=== PATIENT | male | born 1960 | race Caucasian/White ===

== ENCOUNTER → 2016-11-01 | Outpatient (CLI) | payer OTHER ==
[2016-11-01 17:51] LABS: ALBUMIN/GLOBULIN RATIO 1.21 (1.00-1.93); ALKALINE PHOSPHATASE 89 U/L (45-117); ALT/SGPT 73 U/L (12-78); ANION GAP 10 MEQ/L (8-16); AST/SGOT 33 U/L (15-37); BILIRUBIN,TOTAL 0.5 MG/DL (0.2-1.0); BLOOD UREA NITROGEN 27 MG/DL (7-18); CALCIUM LEVEL 8.7 MG/DL (8.5-10.1); CARBON DIOXIDE LEVEL 28 MEQ/L (21-32); CHLORIDE LEVEL 106 MEQ/L (98-107); CHOLESTEROL LEVEL 193 MG/DL (<200); CREATININE FOR GFR 1.17 MG/DL (0.70-1.30); GLOMERULAR FILTRATION RATE > 60.0 (>56); GLUCOSE, FASTING 100 MG/DL (70-105); POTASSIUM SERUM 4.7 MEQ/L (3.5-5.1); SODIUM LEVEL 144 MEQ/L (136-145); TOTAL PROTEIN 7.3 GM/DL (6.4-8.2); TRIGLYCERIDES LEVEL 115 MG/DL (<150)
== END ==
LOC: M WUC 09:21
PROVIDERS: ATTEND Physician Assistant
DX: I10 Essential (primary) hypertension (principal); E78.2 Mixed hyperlipidemia

== ENCOUNTER → 2017-02-13 | Outpatient (CLI) | payer OTHER ==
[2017-02-13 13:06] LABS: ALBUMIN 3.9 GM/DL (3.2-5.2); ALBUMIN/GLOBULIN RATIO 1.15 (1.00-1.93); ALKALINE PHOSPHATASE 82 U/L (45-117); ALT/SGPT 79 U/L (12-78); ANION GAP 5 MEQ/L (8-16); AST/SGOT 38 U/L (15-37); BILIRUBIN,TOTAL 0.6 MG/DL (0.2-1.0); BLOOD UREA NITROGEN 25 MG/DL (7-18); CALCIUM LEVEL 9.4 MG/DL (8.5-10.1); CARBON DIOXIDE LEVEL 29 MEQ/L (21-32); CHLORIDE LEVEL 103 MEQ/L (98-107); CHOLESTEROL LEVEL 213 MG/DL (<200); CREATININE FOR GFR 1.26 MG/DL (0.70-1.30); GLOMERULAR FILTRATION RATE > 60.0 (>56); GLUCOSE, FASTING 101 MG/DL (70-105); POTASSIUM SERUM 4.8 MEQ/L (3.5-5.1); SODIUM LEVEL 137 MEQ/L (136-145); TOTAL PROTEIN 7.3 GM/DL (6.4-8.2); TRIGLYCERIDES LEVEL 85 MG/DL (<150)
== END ==
LOC: M WUC 09:18
PROVIDERS: ATTEND Physician Assistant
DX: I10 Essential (primary) hypertension (principal); E78.2 Mixed hyperlipidemia; E66.9 Obesity, unspecified

== ENCOUNTER → 2017-05-24 | Outpatient (CLI) | payer OTHER ==
[2017-05-24 18:25] LABS: BASO % 0.7 % (0.0-1.0); EOS # 0.4 K/mm3 (0.0-0.50); EOS % 7.7 % (0.0-3.0); LARGE UNSTAINED CELL # 0.2 K/mm3 (0.0-0.4); LYMPH # 1.4 K/mm3 (1.5-4.5); LYMPH % 27.2 % (24.0-44.0); MEAN CORPUSCULAR HEMOGLOBIN 33.6 pg (27.0-33.0); MEAN CORPUSCULAR HGB CONC 34.4 g/dl (32.0-36.5); MEAN CORPUSCULAR VOLUME 97.6 fl (80.0-96.0); MONO # 0.4 K/mm3 (0.0-0.8); MONO % 7.2 % (0.0-5.0); NEUTROPHILS # 2.7 K/mm3 (1.8-7.7); NEUTROPHILS % 53.3 % (36.0-66.0); PLATELET COUNT, AUTOMATED 224 k/mm3 (150-450); RED CELL DISTRIBUTION WIDTH 13.6 % (11.5-14.5)
[2017-05-24 18:55] LABS: ALBUMIN/GLOBULIN RATIO 1.18 (1.00-1.93); ALKALINE PHOSPHATASE 75 U/L (45-117); ALT/SGPT 78 U/L (12-78); ANION GAP 6 MEQ/L (8-16); AST/SGOT 34 U/L (15-37); BILIRUBIN,TOTAL 0.4 MG/DL (0.2-1.0); BLOOD UREA NITROGEN 32 MG/DL (7-18); CALCIUM LEVEL 9.3 MG/DL (8.5-10.1); CARBON DIOXIDE LEVEL 29 MEQ/L (21-32); CHLORIDE LEVEL 103 MEQ/L (98-107); CHOLESTEROL LEVEL 220 MG/DL (<200); CREATININE FOR GFR 1.11 MG/DL (0.70-1.30); GLOMERULAR FILTRATION RATE > 60.0 (>56); GLUCOSE, FASTING 96 MG/DL (70-105); SODIUM LEVEL 138 MEQ/L (136-145); TOTAL PROTEIN 7.4 GM/DL (6.4-8.2); TRIGLYCERIDES LEVEL 88 MG/DL (<150)
== END ==
LOC: M WUC 09:56
PROVIDERS: ATTEND Physician Assistant
DX: I10 Essential (primary) hypertension (principal); E78.2 Mixed hyperlipidemia; Z13.21 Encounter for screening for nutritional disorder

== ENCOUNTER → 2017-08-09 | Outpatient (CLI) | payer OTHER ==
[2017-08-09 18:01] LABS: ALBUMIN 3.9 GM/DL (3.2-5.2); ALBUMIN/GLOBULIN RATIO 1.11 (1.00-1.93); ALKALINE PHOSPHATASE 69 U/L (45-117); ALT/SGPT 80 U/L (12-78); ANION GAP 8 MEQ/L (8-16); AST/SGOT 34 U/L (7-37); BILIRUBIN,TOTAL 0.4 MG/DL (0.2-1.0); BLOOD UREA NITROGEN 28 MG/DL (7-18); CALCIUM LEVEL 9.1 MG/DL (8.5-10.1); CARBON DIOXIDE LEVEL 29 MEQ/L (21-32); CHLORIDE LEVEL 102 MEQ/L (98-107); CHOLESTEROL LEVEL 198 MG/DL (<200); FERRITIN 327 NG/ML (26-388); GLOMERULAR FILTRATION RATE > 60.0 (>56); GLUCOSE, FASTING 99 MG/DL (70-105); PERCENT SATURATION 28.1 % (19.7-50.0); POTASSIUM SERUM 4.7 MEQ/L (3.5-5.1); SODIUM LEVEL 139 MEQ/L (136-145); TOTAL IRON BINDING CAPACITY 338 UG/DL (250-450); TOTAL PROTEIN 7.4 GM/DL (6.4-8.2); TRIGLYCERIDES LEVEL 108 MG/DL (<150)
[2017-08-09 18:16] LABS: BASO # 0.1 10^3/uL (0.0-0.2); BASO % 1.1 % (0.0-1.0); EOS # 0.4 10^3/uL (0.0-0.50); EOS % 7.4 % (0.0-3.0); IMMATURE GRANULOCYTE % 0.6 % (0-0); LYMPH # 1.7 10^3/uL (1.5-4.5); LYMPH % 31.5 % (24.0-44.0); MEAN CORPUSCULAR HEMOGLOBIN 32.8 pg (27.0-33.0); MEAN CORPUSCULAR HGB CONC 33.1 g/dl (32.0-36.5); MONO # 0.6 10^3/uL (0.0-0.8); MONO % 10.4 % (0.0-5.0); NEUTROPHILS # 2.6 10^3/uL (1.8-7.7); PLATELET COUNT, AUTOMATED 218 10^3/uL (150-450); RED CELL DISTRIBUTION WIDTH 13.6 % (11.5-14.5); WHITE BLOOD COUNT 5.3 10^3/uL (4.0-10.0)
== END ==
LOC: M WUC 08:48
PROVIDERS: ATTEND Physician Assistant
DX: D64.9 Anemia, unspecified (principal); E78.2 Mixed hyperlipidemia; E55.9 Vitamin D deficiency, unspecified

== ENCOUNTER → 2017-09-23 | Outpatient (REF) | payer OTHER ==
[2017-09-23 13:15] LABS: RETIC HEMOGLOBIN EQUIVALENT 38.7 pg (24-36); RETICULOCYTE % 1.9 % (0.5-1.5)
[2017-09-23 13:17] LABS: REASON FOR REVIEW COMPREHENSIVE REVIEW; SLIDE REVIEW Report; SOURCE PERIPHERAL SMEAR
[2017-09-23 13:18] LABS: HEMATOCRIT 37.2 % (42.0-52.0)
[2017-09-23 13:20] LABS: INR 0.96; PROTHROMBIN TIME 12.8 SECONDS (12.4-14.5)
[2017-09-23 13:35] LABS: VITAMIN B12 LEVEL 479 PG/ML (247-911)
[2017-09-23 13:36] LABS: FREE T4 1.13 NG/DL (0.76-1.46); IMMUNOGLOBULIN G 850 MG/DL (681-1648); IMMUNOGLOBULIN M 181 MG/DL (40-230); THYROID STIMULATING HORMONE 0.738 uIU/ML (0.358-3.740); TOTAL PROTEIN 7.5 GM/DL (6.4-8.2)
[2017-09-23 13:36] LABS: GAMMA GLUTAMYLTRANSPEPTIDASE 134 U/L (15-85)
[2017-09-25 11:17] LABS: ALBUMIN 4.43 GM/DL (3.29-5.55); ALPHA-1-GLOBULIN % 4.2 % (2.9-4.9); ALPHA-1-GLOBULINS 0.32 GM/DL (0.17-0.41); ALPHA-2-GLOBULINS 0.82 GM/DL (0.42-0.99); ALPHA-2-GLOBULINS % 10.9 % (7.1-11.8); BETA-1-GLOBULINS 0.52 GM/DL (0.28-0.60); BETA-1-GLOBULINS % 6.9 % (4.7-7.2); BETA-2-GLOBULINS 0.43 GM/DL (0.19-0.55); BETA-2-GLOBULINS % 5.7 % (3.2-6.5); GAMMA GLOBULIN % 13.3 % (11.1-18.8)
[2017-09-25 12:05] LABS: PRETREATED FOLATE FOR RBCFOL 7.6 NG/ML
[2017-09-26 14:11] LABS: METHYLMALONIC ACID 272 nmol/L (0-378)
[2017-09-26 14:11] LABS: FREE KAPPA LIGHT CHAINS SERUM 17.1 mg/L (3.3-19.4); FREE LAMBDA LIGHT CHAINS SERUM 19.8 mg/L (5.7-26.3); KAPPA/LAMBDA RATIO SERUM 0.86 (0.26-1.65)
== END ==
LOC: M LAB REF 12:53
DX: D64.9 Anemia, unspecified (principal)
CPT/HCPCS: 82977

== ENCOUNTER → 2017-10-14 | Outpatient (REF) | payer OTHER | LOC: M SFHCLERA 12:43 | DX: C44.602 Unspecified malignant neoplasm of skin of right upper limb, including shoulder (principal) ==

== ENCOUNTER 2018-01-14 10:48 | Day surgery (SDC) | payer OTHER ==
[2018-01-14] MEDS: NS 1,000 ML IV (11:14)
[2018-01-14] MEDS ORDERED: PROPOFOL 200 MG/20 ML VIAL As Ordered ×2 (11:48)
== END 2018-01-14 12:38 | disposition home or self-care (01) ==
LOC: M OPP 10:48
DX: Z12.11 Encounter for screening for malignant neoplasm of colon (principal); D12.3 Benign neoplasm of transverse colon; D12.2 Benign neoplasm of ascending colon; D12.1 Benign neoplasm of appendix; I10 Essential (primary) hypertension; E78.5 Hyperlipidemia, unspecified; J44.9 Chronic obstructive pulmonary disease, unspecified; Z79.899 Other long term (current) drug therapy; Z80.0 Family history of malignant neoplasm of digestive organs; Z87.891 Personal history of nicotine dependence
CPT/HCPCS: 45385

== ENCOUNTER → 2018-04-25 | Outpatient (CLI) | payer OTHER | LOC: M LRY 09:24 | DX: D64.9 Anemia, unspecified (principal); E78.2 Mixed hyperlipidemia; E55.9 Vitamin D deficiency, unspecified ==

== ENCOUNTER → 2018-08-18 | Outpatient (CLI) | payer OTHER ==
[2018-08-18 17:20] LABS: BASO % 0.7 % (0.0-1.0); EOS # 0.4 10^3/uL (0.0-0.50); HEMATOCRIT 36.2 % (42.0-52.0); HEMOGLOBIN 11.6 g/dl (13.5-17.5); IMMATURE GRANULOCYTE % 1.2 % (0-3.0); LYMPH # 1.3 10^3/uL (1.5-4.5); LYMPH % 22.7 % (24.0-44.0); MEAN CORPUSCULAR HEMOGLOBIN 31.4 pg (27.0-33.0); MEAN CORPUSCULAR VOLUME 98.1 fl (80.0-96.0); MONO # 0.6 10^3/uL (0.0-0.8); MONO % 10.6 % (0.0-5.0); NEUTROPHILS # 3.5 10^3/uL (1.8-7.7); NEUTROPHILS % 58.8 % (36.0-66.0); PLATELET COUNT, AUTOMATED 222 10^3/uL (150-450); RED BLOOD COUNT 3.69 10^6/uL (4.30-6.10); WHITE BLOOD COUNT 5.9 10^3/uL (4.0-10.0)
[2018-08-18 18:05] LABS: ALBUMIN 3.6 GM/DL (3.2-5.2); ALBUMIN/GLOBULIN RATIO 1.06 (1.00-1.93); ALKALINE PHOSPHATASE 88 U/L (45-117); ALT/SGPT 60 U/L (12-78); ANION GAP 12 MEQ/L (8-16); AST/SGOT 32 U/L (7-37); BILIRUBIN,TOTAL 0.6 MG/DL (0.2-1.0); BLOOD UREA NITROGEN 41 MG/DL (7-18); CALCIUM LEVEL 8.9 MG/DL (8.5-10.1); CARBON DIOXIDE LEVEL 22 MEQ/L (21-32); CHLORIDE LEVEL 101 MEQ/L (98-107); CREATININE FOR GFR 1.71 MG/DL (0.70-1.30); FREE T4 1.26 NG/DL (0.76-1.46); GLOMERULAR FILTRATION RATE 44.3 (>56); GLUCOSE, FASTING 93 MG/DL (70-100); POTASSIUM SERUM 4.1 MEQ/L (3.5-5.1); SODIUM LEVEL 135 MEQ/L (136-145); THYROID STIMULATING HORMONE 0.814 uIU/ML (0.358-3.740); TOTAL 25(OH) VITAMIN D 58.8 NG/ML (30.0-100.0)
== END ==
LOC: M WUC 11:15
DX: D64.9 Anemia, unspecified (principal); E55.9 Vitamin D deficiency, unspecified; E78.2 Mixed hyperlipidemia; Z13.29 Encounter for screening for other suspected endocrine disorder
CPT/HCPCS: 84443

== ENCOUNTER → 2018-08-27 | Outpatient (CLI) | payer OTHER ==
[~2018-08-27] MED LIST: ELIQ5TAB PO; SIMV40TA2; VALS160T3; VITA50005
--- NOTE | 2018-08-27 12:36 | REP ---
Emergency left lower extremity duplex venous ultrasound: History: Edema in the left lower extremity. Question DVT. Findings: There is lack of compressibility and occlusive thrombosis seen in the popliteal vein and proximal calf veins at the venous confluence in the upper calf consistent with DVT. The femoral vein and common femoral vein segment are clear. Study is otherwise unremarkable. Impression: The study is positive for occlusive DVT in the popliteal vein and proximal calf deep veins. Electronically Signed by Colin Zelaya MD 08/27/2018 04:36 P
== END ==
LOC: M RAD 11:19
PROVIDERS: ATTEND Physician Assistant
DX: R60.0 Localized edema (principal)

== ENCOUNTER 2018-09-02 13:33 | Emergency (ER) | payer OTHER ==
[~2018-09-02] VITALS: Ht 182.9 cm; Wt 127.3 kg
[~2018-09-02 13:33] MED LIST changes: -ELIQ5TAB PO
[2018-09-02] MEDS ORDERED: ELIQ5TAB PO (13:41)
--- NOTE | 2018-09-02 15:09 | REP ---
Right foot series: Four views. History: Pain and swelling. Findings: Four views right foot demonstrate Achilles and plantar calcaneal spurring. Overall mineralization pattern is normal. No fracture or subluxation is seen. Impression: Heel spurs. No acute bony abnormality. Electronically Signed by Colin Zelaya MD 09/02/2018 03:00 P
[2018-09-02 15:41] VITALS: BP 110/61
== END 2018-09-02 15:43 | disposition home or self-care (01) ==
LOC: M ED 13:33
DX: S96.911A Strain of unspecified muscle and tendon at ankle and foot level, right foot, initial encounter (principal); M79.89 Other specified soft tissue disorders; X58.XXXA Exposure to other specified factors, initial encounter; Y92.89 Other specified places as the place of occurrence of the external cause; Z86.718 Personal history of other venous thrombosis and embolism; Z79.899 Other long term (current) drug therapy; Z79.01 Long term (current) use of anticoagulants

== ENCOUNTER → 2018-10-15 | Outpatient (CLI) | payer OTHER ==
[~2018-10-15] MED LIST changes: +ELIQ5TAB PO
--- NOTE | 2018-10-15 10:05 | REP ---
RENAL ULTRASOUND: Real-time sonographic evaluation of the kidney is performed. The kidneys are normal in size and echotexture, right kidney measuring 11.5 x 6.5 x 5.5 cm and left kidney 11.4 x 6.0 x 6.5 cm. There is no hydronephrosis bilaterally. Vascular calcifications are seen in the kidneys bilaterally. There is no definite stone or mass identified. Urinary bladder is not optimally distended and not optimally evaluated, no gross abnormality is seen. Prostate is enlarged measuring 5.4 x 4.5 x 5.6 cm for a total volume of 71.2 mL. IMPRESSION: No hydronephrosis bilaterally. Enlarged prostate. Urinary bladder not well distended and not well evaluated. Electronically Signed by Rey Cortes MD 10/15/2018 01:40 P
== END ==
LOC: M RAD 07:23
PROVIDERS: ATTEND Internal Medicine Nephrology
DX: I12.9 Hypertensive chronic kidney disease with stage 1 through stage 4 chronic kidney disease, or unspecified chronic kidney disease (principal)

== ENCOUNTER → 2018-12-28 | Outpatient (CLI) | payer OTHER ==
[2018-12-28 12:58] LABS: BASO # 0.1 10^3/uL (0.0-0.2); BASO % 1.1 % (0.0-1.0); EOS # 0.4 10^3/uL (0.0-0.50); EOS % 9.2 % (0.0-3.0); HEMATOCRIT 39.6 % (42.0-52.0); HEMOGLOBIN 13.1 g/dl (13.5-17.5); LYMPH # 1.3 10^3/uL (1.5-4.5); LYMPH % 29.1 % (24.0-44.0); MEAN CORPUSCULAR HEMOGLOBIN 31.2 pg (27.0-33.0); MEAN CORPUSCULAR HGB CONC 33.1 g/dl (32.0-36.5); MEAN CORPUSCULAR VOLUME 94.3 fl (80.0-96.0); MONO # 0.5 10^3/uL (0.0-0.8); MONO % 10.8 % (0.0-5.0); NEUTROPHILS # 2.2 10^3/uL (1.8-7.7); NEUTROPHILS % 49.4 % (36.0-66.0); PLATELET COUNT, AUTOMATED 203 10^3/uL (150-450); WHITE BLOOD COUNT 4.5 10^3/uL (4.0-10.0)
[2018-12-28 13:51] LABS: ALBUMIN 4.1 GM/DL (3.2-5.2); BILIRUBIN,TOTAL 0.9 MG/DL (0.2-1.0); CALCIUM LEVEL 9.7 MG/DL (8.5-10.1); CHOLESTEROL RISK RATIO 3.153 (<5); CREATININE FOR GFR 1.46 MG/DL (0.70-1.30); GLOMERULAR FILTRATION RATE 53.2 (>56); PERCENT SATURATION 44.2 % (19.7-50.0); TOTAL PROTEIN 7.2 GM/DL (6.4-8.2)
[2018-12-28 13:53] LABS: TOTAL 25(OH) VITAMIN D 48.3 NG/ML (30.0-100.0)
== END ==
LOC: M WUC 08:47
PROVIDERS: ATTEND Physician Assistant
DX: D64.9 Anemia, unspecified (principal); N25.9 Disorder resulting from impaired renal tubular function, unspecified; E78.2 Mixed hyperlipidemia; E55.9 Vitamin D deficiency, unspecified

== ENCOUNTER 2019-04-24 10:32 | Emergency (ER) | payer OTHER ==
[~2019-04-24] VITALS: Ht 182.9 cm; Wt 127.3 kg
[2019-04-24 11:09] LABS: BASO % 0.4 % (0.0-1.0); EOS # 0.2 10^3/uL (0.0-0.50); HEMATOCRIT 36.3 % (42.0-52.0); HEMOGLOBIN 12.1 g/dl (13.5-17.5); LYMPH # 1.1 10^3/uL (1.5-4.5); LYMPH % 16.2 % (24.0-44.0); MEAN CORPUSCULAR HEMOGLOBIN 32.5 pg (27.0-33.0); MEAN CORPUSCULAR HGB CONC 33.3 g/dl (32.0-36.5); MEAN CORPUSCULAR VOLUME 97.6 fl (80.0-96.0); MONO # 0.7 10^3/uL (0.0-0.8); MONO % 10.8 % (0.0-5.0); NEUTROPHILS # 4.6 10^3/uL (1.8-7.7); NEUTROPHILS % 69.3 % (36.0-66.0); PLATELET COUNT, AUTOMATED 202 10^3/uL (150-450); RED BLOOD COUNT 3.72 10^6/uL (4.30-6.10); WHITE BLOOD COUNT 6.7 10^3/uL (4.0-10.0)
[2019-04-24] MEDS ORDERED: NS 1,000 ML IV ONE (11:15)
[2019-04-24 11:27] LABS: ERYTHROCYTE SEDIMENTATION RATE 69 mm/hr (0-20)
[2019-04-24 11:34] LABS: ALBUMIN 3.6 GM/DL (3.2-5.2); BILIRUBIN,TOTAL 0.6 MG/DL (0.2-1.0); C REACTIVE PROTEIN QUANTITATIV 1.63 MG/DL (0.00-0.30); CALCIUM LEVEL 9.5 MG/DL (8.5-10.1); CREATININE FOR GFR 1.38 MG/DL (0.70-1.30); GLOMERULAR FILTRATION RATE 56.7 (>56); POTASSIUM SERUM 4.3 MEQ/L (3.5-5.1); TOTAL PROTEIN 7.3 GM/DL (6.4-8.2)
[2019-04-24 12:17] LABS: INR 1.35; PROTHROMBIN TIME 16.4 SECONDS (11.8-14.0)
[2019-04-24 12:18] LABS: PARTIAL THROMBOPLASTIN TIME 37.7 SECONDS (25.0-38.4)
[2019-04-24] MEDS ORDERED: CLIN150C14 PO (12:39)
[2019-04-24] MEDS ORDERED: CLINDAMYCIN 300 MG in APPROPRIATE DILUENT 1 EA IV ONE (12:45)
[2019-04-24 13:57] VITALS: BP 121/61
--- NOTE | 2019-04-24 14:43 | REP ---
RIGHT LOWER EXTREMITY DOPPLER VENOUS ULTRASOUND: 04/24/2019. Clinical history: Lower extremity edema. History of left DVT 08/24. Comparison: None. Technique: The deep venous system of the right lower extremity is evaluated with pantoja scale imaging, compression ultrasound, color imaging and duplex Doppler interrogation. Examination from the groin through the popliteal fossa into the proximal calf. Findings: There is full compressibility from the common femoral vein in the inguinal region through the popliteal vein. Color imaging confirms patency throughout the course of the deep venous system. There is respiratory variation and augmented flow at all levels. Impression: 1. No Doppler venous ultrasound evidence of DVT in the right lower extremity. Electronically Signed by Brian Waddell MD 04/24/2019 08:38 P
== END 2019-04-24 14:14 | disposition home or self-care (01) ==
LOC: M ED 10:32
DX: L03.115 Cellulitis of right lower limb (principal); I10 Essential (primary) hypertension; Z79.899 Other long term (current) drug therapy; Z79.01 Long term (current) use of anticoagulants; Z87.891 Personal history of nicotine dependence

== ENCOUNTER 2019-09-19 21:05 | Inpatient (IN) | payer OTHER ==
[~2019-09-19] VITALS: Ht 182.9 cm; Wt 132.7 kg
[~2019-09-19 21:05] MED LIST changes: +CLIN150C14 PO; -SIMV40TA2; +SIMV40TA20
[2019-09-19 21:54] LABS: BASO % 0.5 % (0.0-1.0); EOS # 0.3 10^3/uL (0.0-0.5); EOS % 4.4 % (0.0-3.0); HEMATOCRIT 34.8 % (42.0-52.0); HEMOGLOBIN 11.1 g/dl (13.5-17.5); LYMPH # 1.9 10^3/uL (1.5-5.0); LYMPH % 30.1 % (24.0-44.0); MEAN CORPUSCULAR HEMOGLOBIN 30.2 pg (27.0-33.0); MEAN CORPUSCULAR HGB CONC 31.9 g/dl (32.0-36.5); MEAN CORPUSCULAR VOLUME 94.6 fl (80.0-96.0); MONO # 0.9 10^3/uL (0.0-0.8); MONO % 13.4 % (0.0-5.0); NEUTROPHILS # 3.3 10^3/uL (1.5-8.5); PLATELET COUNT, AUTOMATED 207 10^3/uL (150-450); RED BLOOD COUNT 3.68 10^6/uL (4.30-6.10); WHITE BLOOD COUNT 6.4 10^3/uL (4.0-10.0)
[2019-09-19 22:24] LABS: BLOOD UREA NITROGEN 55 MG/DL (7-18); CALCIUM LEVEL 9.2 MG/DL (8.5-10.1); CARBON DIOXIDE LEVEL 26 MEQ/L (21-32); CHLORIDE LEVEL 101 MEQ/L (98-107); CK-MB VALUE MASS 3.6 NG/ML (<3.6); CPK CREATINE PHOSPHOKINASE 282 U/L (39-308); CREATININE FOR GFR 2.79 MG/DL (0.70-1.30); GLOMERULAR FILTRATION RATE 25.1 (>56); GLUCOSE, FASTING 111 MG/DL (70-100); MB/CK RELATIVE INDEX 1.28 (< OR =4); NT-PRO BNP 176 PG/ML (<125); POTASSIUM SERUM 3.8 MEQ/L (3.5-5.1); SODIUM LEVEL 137 MEQ/L (136-145); TROPONIN I < 0.02 NG/ML (< 0.10)
[2019-09-19] MEDS ORDERED: NS 1,000 ML IV ONE (22:45)
[2019-09-19 23:08] LABS: ALBUMIN 3.8 GM/DL (3.2-5.2); ALT/SGPT 39 U/L (12-78); BILIRUBIN,DIRECT 0.1 MG/DL (0.0-0.2); BILIRUBIN,TOTAL 0.2 MG/DL (0.2-1.0)
[2019-09-19] MEDS ORDERED: FISH1000 PO (23:09)
[2019-09-19] MEDS ORDERED: VITACHTA PO (23:09)
[2019-09-19] MEDS ORDERED: SIMV40TA20 PO (23:09)
[2019-09-19] MEDS ORDERED: ACET-897 PO (23:09)
[2019-09-19] MEDS ORDERED: VALS160T3 PO (23:09)
[2019-09-19] MEDS ORDERED: ELIQ5TAB PO (23:09)
[2019-09-20] VITALS (9 sets, daily range): BP systolic 138–163; BP diastolic 75–95
[2019-09-20] MEDS ORDERED: ACETAMINOPHEN 500 MG TAB PO PRN
--- NOTE | 2019-09-20 02:00 | HPEPDOC ---
[facility] Medical History & Physical Date of Admission Sep 20, 2019 Date of Service: Sep 20, 2019 Primary Care Physician: Jessi James PA-C ER History and Physical CHIEF COMPLAINT: Pre-syncope and hypotension HISTORY OF PRESENT ILLNESS: This is a 59-year-old male with a pertinent past medical history of alcohol abuse, fatty liver, hypertension, left lower leg DVT on Eliquis who presented to our ER for hypotension and presyncope the last 3 days. He is accompanied by his who supplemented the history with the patient. He states since Thursday he has noticed that his blood pressure has been running low with systolics ranging from 74-91 and diastolics ranging from 3950. He states that he was just measuring his blood pressure for he does it daily with his because of their history of hypertension. He does note with these low blood pressures he is having company lightheadedness and dizziness especially with forward bending. 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 He admits the only new medication is Backaid, which is an zqwy-sdl-sumujjj that he picked up this past Thursday for his low back pain. Otherwise patient denies fevers, chills, weight loss, hair loss, headache, visual changes, chest pain, shortness of breath, cough, nausea, vomiting, diarrhea, abdominal pain, muscle aches, worsening arthritis, change in mood. In the ER he was found to have a blood pressure lows at 80/50. Hospitalist team was then called for management for hypotension. PAST MEDICAL HISTORY: 1. Alcohol abuse 2. Fatty liver 3. Hypertension 4. Hyperlipidemia 5. Unprovoked DVT of the left lower leg currently on Eliquis diagnosed in 08/2018 HOME MEDICATIONS: Please see below. ALLERGIES: Please see below PAST SURGICAL HISTORY: 1. Tonsillectomy 2. Cataract surgery bilateral. 3. Biopsy of right hand spot. 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 ETOH: [address] drink prior to coming to the ER this evening, Illicit drug use: Denies CODE STATUS: Full code FAMILY HISTORY:Reviewed and noncontributory REVIEW OF SYSTEMS: 10 systems reviewed and negative other than HPI PHYSICAL EXAMINATION: VITAL SIGNS: See below GENERAL: Pleasant 59-year-old male morbidly obese sitting up in bed awake alert oriented speaking in complete sentences no acute distress HEENT: Atraumatic normocephalic pupils are equal round and reactive dry mucous membranes with no JVD CARDIOVASCULAR: Very distant heart sounds difficult to assess due to large body habitus RESPIRATORY: Clear to auscultation bilaterally. ABDOMINAL: Bowel sounds present abdomen soft and nontender morbidly obese abdomen EXTREMITIES: No clubbing cyanosis or edema NEUROLOGICAL: Spontaneously moves all 4 extremities cranial 2 through 12 grossly intact no gross focal deficits appreciated PSYCHOLOGICAL: Appropriate LABORATORY DATA: See below. MICROBIOLOGY: Please see below. IMAGING: No imaging ASSESSMENT & PLAN: This is a 59-year-old male with a pertinent past medical history of alcohol abuse, fatty liver, hypertension, left lower leg DVT on Eliquis who presented to our ER for hypotension and presyncope PROBLEMS: 1. Hypotension/presyncope- blood pressure responded to 1 L bolus in the ER. There is an MELANI with a creatinine of 2.79. I believe this is all secondary to hypovolemia the uorz-seg-vjnhykm drug BackAid has Parabrom which is a saof-oiz-ammzerq diuretic with his home valsartan and hydrochlorothiazide that he is supplementing with possibly caused him to be hypovolemic recommendations include discontinue Backaid, continue normal saline 100 mL for 2 L. Ortho statsx1, hold home hypertensive medication while admitted, 2. MELANI secondary to problem 1. Baseline creatinine 1.3 3. Hypertension. Hold home hypertensive secondary due to problem 1. Once stable can consider restarting 4. Alcohol abuse. [facility] protocol, multi vitamin, thiamine and folate on board 5. Unprovoked DVT of the left lower leg currently on Eliquis diagnosed in 08/2018. Stable. 2+ pedal pulses bilaterally . Has yet to establish with profiling machine operator states it was unprovoked. We'll continue as prescribed advised that he needs to establish with profiling machine operator upon discharge. He is agreeable to this plan. 6. Normocytic anemia. Will monitor with CBCs. Iron studies pending. Has a history of alcohol abuse started with thiamine and folic acid. Last colonoscopy January 2018- 3 polyps removed: tubular adenoma. DVT PROPHYLAXIS: Eliquis DISPOSITION: Obs 24-48 hours I personally saw and examined patient. I have reviewed and agree with residents findings including all diagnostic interpretations, and treatment plans as written. I was present for the cabral portions of any procedures performed and the inclusive time noted in any critical care times treatment. Time spent 35 minutes, greater than 50% of the time spent on education. Vital Signs Vital Signs Date Time Temp Pulse Resp B/P (MAP) Pulse Ox O2 Delivery O2 Flow Rate FiO2 09/20/19 00:30 71 18 107/56 (73) 98 Room Air 09/19/19 21:05 97.4 Laboratory Data Labs 24H Laboratory Tests 2 09/19/19 21:41: Immature Granulocyte % (Auto) 0.6, Neutrophils (%) (Auto) 51.0, Lymphocytes (%) (Auto) 30.1, Monocytes (%) (Auto) 13.4H, Eosinophils (%) (Auto) 4.4H, Basophils (%) (Auto) 0.5, Neutrophils # (Auto) 3.3, Lymphocytes # (Auto) 1.9, Monocytes # (Auto) 0.9H, Eosinophils # (Auto) 0.3, Basophils # (Auto) 0.0, Nucleated Red Blood Cells % (auto) 0.0, Anion Gap 10, Glomerular Filtration Rate 25.1L, Calcium Level 9.2, Total Bilirubin 0.2, Direct Bilirubin 0.1, Aspartate Amino Transf (AST/SGOT) 31, Alanine Aminotransferase (ALT/SGPT) 39, Alkaline Phosphatase 79, Total Creatine Kinase 282, Creatine Kinase MB 3.6, Creatine Kinase MB Relative Index 1.28, Troponin I < 0.02, PQ-Xoh-N-Type Natriuretic Peptide 176H, Total Protein 7.0, Albumin 3.8, Albumin/Globulin Ratio 1.19 09/19/19 23:53: Lactic Acid Level 2.7*H CBC/BMP Laboratory Tests 09/19/19 21:41 Microbiology Microbiology 09/19/19 Blood Culture, Received Pending 09/19/19 Blood Culture, Received Pending Home Medications Scheduled Apixaban (Eliquis) 5 Mg Tablet, 5 MG PO BID Multivitamins (Child Chew Vitamin) 1 Each Tab.chew, 1 TAB PO DAILY [place]-3 Fatty Acids/Fish Oil (Fish Oil 1,000 mg Capsule) 1 Each Capsule, 1,000 MG PO DAILY Simvastatin (Simvastatin) 40 Mg Tablet, 40 MG PO DAILY Valsartan/Hydrochlorothiazide (Valsartan-Hctz 160-25 mg Tab) 1 Each Tablet, 1 TAB PO DAILY Scheduled PRN Acetaminophen (Tylenol Extra Strength) 500 Mg Tablet, 1,000 MG PO Q6H PRN for PAIN Allergies Coded Allergies: No Known Allergies (Unverified , 11/04/17) KYLEIGH LLOYD DO Sep 20, 2019 02:00 CORA JACQUES MD Sep 20, 2019 04:26
[2019-09-20] MEDS: NS 1,000 ML IV SCH ×2 (03:54→14:24)
[2019-09-20 05:42] LABS: HEMATOCRIT 35.2 % (42.0-52.0); HEMOGLOBIN 10.9 g/dl (13.5-17.5); MEAN CORPUSCULAR HEMOGLOBIN 29.9 pg (27.0-33.0); MEAN CORPUSCULAR VOLUME 96.7 fl (80.0-96.0); PLATELET COUNT, AUTOMATED 179 10^3/uL (150-450); RED BLOOD COUNT 3.64 10^6/uL (4.30-6.10); WHITE BLOOD COUNT 4.2 10^3/uL (4.0-10.0)
[2019-09-20 05:52] LABS: CALCIUM LEVEL 8.5 MG/DL (8.5-10.1); CREATININE FOR GFR 2.01 MG/DL (0.70-1.30); GLOMERULAR FILTRATION RATE 36.6 (>56); PERCENT SATURATION 16.4 % (19.7-50.0); POTASSIUM SERUM 4.7 MEQ/L (3.5-5.1)
[2019-09-20] MEDS: FOLIC ACID 1 MG TAB PO SCH (08:27)
[2019-09-20] MEDS: APIXABAN 5 MG TAB (ELIQUIS) PO SCH ×2 (08:27→20:16)
[2019-09-20] MEDS: SIMVASTATIN 40 MG TAB PO SCH (08:27)
[2019-09-20] MEDS: THIAMINE 100 MG TAB PO SCH (08:27)
[2019-09-20] MEDS: MULTIVITAMINS CHILDREN'S CHEWABLE TABLET PO SCH (14:24)
[2019-09-20] MEDS ORDERED: VALSARTAN 80 MG TAB (DIOVAN) PO ONE (19:00)
--- NOTE | 2019-09-20 19:02 | IPNPDOC ---
Date Seen The patient was seen on 09/20/19. Progress Note SUBJECTIVE: Patient reported feeling well today without any complaints. Afebrile overnight. No leukocytosis. Cr improved 2.79->2.01 with resolution of lactic acidosis. OBJECTIVE PHYSICAL EXAMINATION: VITAL SIGNS: Please see below. General: No acute distress, Alert Eyes: Normal sclera, EOMI HENT: Atraumatic Cardiovascular: Normal rate, normal rhythm. Pulmonary: Clear to auscultation b/l, no wheezing GI: Soft, nontender, nondistended Skin: Warm and dry Neuro: CN grossly intact. No focal deficits. Strengths equal b/l. Psych: oriented x 3 LABORATORY DATA, IMAGING STUDIES, MICROBIOLOGY: Please see below. DVT prophylaxis ordered?: Eliquis ASSESSMENT AND PLAN: 1. Hypotension/Presyncope - Resolved with IVF resuscitation. No evidence of infection. - f/u blood cultures. Patient remains afebrile with no leukocytosis. UA negative. - Started on Backaid in setting of valsartan and HCTZ at home, suspect 2/2 hypovolemia. - Home anti-hypertensive had been held. - Will start on low dose valsartan tonight. If Bp stable, can restart home dose medication tomorrow. 2. MELANI - Rapidly improving. - suspect 2/2 hypvolemia. - c/w IVF resuscitation. 3. HTN - Give one dose of 80 mg valsartan today. - Consider resuming home med tomorrow. 4. Alcohol abuse - CiWA w/ multivitamins. 5. DVT - c/w Eliquis. 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 DISPOSITION: Home likely tomorrow. VS, I&O, [facility]H, [facility] Vital Signs/I&O Vital Signs Date Time Temp Pulse Resp B/P (MAP) Pulse Ox O2 Delivery O2 Flow Rate FiO2 09/20/19 14:00 98.4 88 20 138/81 (100) 98 Room Air I&O- Last 24 Hours up to 6 AM 09/20/19 06:00 Intake Total 1720 ml Output Total 650 ml Balance 1070 ml Laboratory Data 24H LABS Laboratory Tests 2 09/19/19 21:41: Immature Granulocyte % (Auto) 0.6, Neutrophils (%) (Auto) 51.0, Lymphocytes (%) (Auto) 30.1, Monocytes (%) (Auto) 13.4H, Eosinophils (%) (Auto) 4.4H, Basophils (%) (Auto) 0.5, Neutrophils # (Auto) 3.3, Lymphocytes # (Auto) 1.9, Monocytes # (Auto) 0.9H, Eosinophils # (Auto) 0.3, Basophils # (Auto) 0.0, Nucleated Red Blood Cells % (auto) 0.0, Anion Gap 10, Glomerular Filtration Rate 25.1L, Calcium Level 9.2, Total Bilirubin 0.2, Direct Bilirubin 0.1, Aspartate Amino Transf (AST/SGOT) 31, Alanine Aminotransferase (ALT/SGPT) 39, Alkaline Phosphatase 79, Total Creatine Kinase 282, Creatine Kinase MB 3.6, Creatine Kinase MB Relative Index 1.28, Troponin I < 0.02, CX-Eqx-K-Type Natriuretic Peptide 176H, Total Protein 7.0, Albumin 3.8, Albumin/Globulin Ratio 1.19 09/19/19 23:53: Lactic Acid Level 2.7*H 09/20/19 03:34: Urine Color YELLOW, Urine Appearance CLEAR, Urine pH 5.0, Urine Specific [place] 1.014, Urine Protein NEGATIVE, Urine Glucose (UA) NEGATIVE, Urine Ketones NEGATIVE, Urine Blood NEGATIVE, Urine Nitrite NEGATIVE, Urine Bilirubin NEGATIVE, Urine Urobilinogen 0.2, Urine Leukocyte Esterase NEGATIVE, Urine WBC (Auto) 0, Urine RBC (Auto) 0, Urine Hyaline Casts (Auto) 8, Urine Bacteria (Auto) NEGATIVE, Urine Squamous Epithelial Cells 0, Urine Mucus (Auto) SMALL, Urine Sperm (Auto) 09/20/19 04:56: Nucleated Red Blood Cells % (auto) 0.0, Anion Gap 10, Glomerular Filtration Rate 36.6L, Calcium Level 8.5, Lactic Acid Level 2.5*H, Magnesium Level 2.0, Iron Level 69, Total Iron Binding Capacity 421, Transferrin % Saturation 16.4L, Ferritin 29 09/20/19 09:26: Lactic Acid Followup at 4 Hours 2.1*H 09/20/19 12:44: Lactic Acid Level 1.7 CBC/BMP Laboratory Tests 09/19/19 21:41 09/20/19 04:56 Microbiology Microbiology 09/19/19 Blood Culture, Received Pending 09/19/19 Blood Culture, Received Pending FAISAL RIGGINS MD Sep 20, 2019 19:02
[2019-09-21 06:32] VITALS: BP 146/86
[2019-09-21 07:45] LABS: HEMATOCRIT 35.1 % (42.0-52.0); HEMOGLOBIN 11.2 g/dl (13.5-17.5); MEAN CORPUSCULAR HEMOGLOBIN 30.6 pg (27.0-33.0); MEAN CORPUSCULAR HGB CONC 31.9 g/dl (32.0-36.5); MEAN CORPUSCULAR VOLUME 95.9 fl (80.0-96.0); PLATELET COUNT, AUTOMATED 186 10^3/uL (150-450); RED BLOOD COUNT 3.66 10^6/uL (4.30-6.10)
[2019-09-21 08:13] LABS: CALCIUM LEVEL 9.1 MG/DL (8.5-10.1); CREATININE FOR GFR 1.45 MG/DL (0.70-1.30); GLOMERULAR FILTRATION RATE 53.4 (>56); POTASSIUM SERUM 4.3 MEQ/L (3.5-5.1)
[2019-09-21] MEDS: THIAMINE 100 MG TAB PO SCH (09:21)
[2019-09-21] MEDS: MULTIVITAMINS CHILDREN'S CHEWABLE TABLET PO SCH (09:21)
[2019-09-21] MEDS: SIMVASTATIN 40 MG TAB PO SCH (09:21)
[2019-09-21] MEDS: FOLIC ACID 1 MG TAB PO SCH (09:21)
[2019-09-21] MEDS: APIXABAN 5 MG TAB (ELIQUIS) PO SCH (09:21)
--- NOTE | 2019-09-21 09:55 | ECGEPIP ---
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
--- NOTE | 2019-09-21 17:20 | DS.PDOC ---
Discharge Summary General Date of Admission Sep 20, 2019 at 02:01 Date of Discharge 09/21/18 Discharge Summary PROCEDURES PERFORMED DURING STAY: [None]. ADMITTING DIAGNOSES: 1. Presyncope 2. Hypotension 3. MELANI 4. Alcohol abuse 5. DVT 6. Normocytic anemia DISCHARGE DIAGNOSES: 1. Presyncope 2. Hypotension 3. MELANI 4. Alcohol abuse 5. DVT 6. Normocytic anemia COMPLICATIONS/CHIEF COMPLAINT: Arf;Hypotension;Lactic Acid Acidosis. HISTORY OF PRESENT ILLNESS: "This is a 59-year-old male with a pertinent past medical history of alcohol abuse, fatty liver, hypertension, left lower leg DVT on Eliquis who presented to our ER for hypotension and presyncope the last 3 days. He is accompanied by his who supplemented the history with the patient. He states since Thursday he has noticed that his blood pressure has been running low with systolics ranging from 74-91 and diastolics ranging from 3950. He states that he was just measuring his blood pressure for he does it daily with his because of their history of hypertension. He does note with these low blood pressures he is having company lightheadedness and dizziness especially with forward bending. 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 He admits the only new medication is Backaid, which is an exzt-pln-lepkwai that he picked up this past Thursday for his low back pain. Otherwise patient denies fevers, chills, weight loss, hair loss, headache, visual changes, chest pain, shortness of breath, cough, nausea, vomiting, diarrhea, abdominal pain, muscle aches, worsening arthritis, change in mood. In the ER he was found to have a blood pressure lows at 80/50. Hospitalist team was then called for management for hypotension." HOSPITAL COURSE: Patient was treated with IVF with resolution of symptoms and rapid recovery of kidney functions. Backaid was discontinued and BP medications were held briefly with BP elevated again and medications were subsequently resumed. UA shows no evidence of infection, patient does not have any urinary symptoms whatsoever with no leukocytosis. Suspect due to combination of medications taken at home in addition to dehydration. Cr 2.79 at presentation had trended down to 1.45 and now patient is asymptomatic with no episodes of hypotension. Patient to be discharged home to f/u with PMD and repeat BMP to determine continue improvement and resolution of MELANI. DISCHARGE MEDICATIONS: Please see below. ALLERGIES: Please see below. PHYSICAL EXAMINATION ON DISCHARGE: VITAL SIGNS: Please see below. General: No acute distress, Alert Eyes: Normal sclera, EOMI HENT: Atraumatic Cardiovascular: Normal rate, normal rhythm. Pulmonary: Clear to auscultation b/l, no wheezing GI: Soft, nontender, nondistended Skin: Warm and dry Neuro: CN grossly intact. No focal deficits. Strengths equal b/l. Psych: oriented x 3 LABORATORY DATA: Please see below. IMAGING: None ACTIVITY: [As tolerated]. DIET: Regular DISCHARGE PLAN: f/u PMD and recheck BMP DISPOSITION: Home, Self-Care. DISCHARGE INSTRUCTIONS: f/u PMD and recheck BMP ITEMS TO FOLLOWUP ON ON OUTPATIENT: None DISCHARGE CONDITION: [Stable]. TIME SPENT ON DISCHARGE: 32 minutes. Vital Signs/I&Os Vital Signs Date Time Temp Pulse Resp B/P (MAP) Pulse Ox O2 Delivery O2 Flow Rate FiO2 09/21/19 06:32 97.9 61 20 146/86 (106) 98 09/20/19 20:14 Room Air I&O- Last 24 Hours up to 6 AM 09/21/19 06:00 Intake Total 2060 ml Output Total 1775 ml Balance 285 ml Laboratory Data Labs 24H Laboratory Tests 2 09/21/19 07:13: Nucleated Red Blood Cells % (auto) 0.0, Anion Gap 8, Glomerular Filtration Rate 53.4L, Calcium Level 9.1, Magnesium Level 2.0 CBC/BMP Laboratory Tests 09/21/19 07:13 Microbiology Microbiology 09/19/19 Blood Culture - Preliminary, Resulted No growth after 24 hours . All specim... 09/19/19 Blood Culture - Preliminary, Resulted No growth after 24 hours . All specim... Discharge Medications Scheduled Apixaban (Eliquis) 5 Mg Tablet, 5 MG PO BID, (Reported) Multivitamins (Child Chew Vitamin) 1 Each Tab.chew, 1 TAB PO DAILY, (Reported) [place]-3 Fatty Acids/Fish Oil (Fish Oil 1,000 mg Capsule) 1 Each Capsule, 1,000 MG PO DAILY, (Reported) Simvastatin (Simvastatin) 40 Mg Tablet, 40 MG PO DAILY, (Reported) Valsartan/Hydrochlorothiazide (Valsartan-Hctz 160-25 mg Tab) 1 Each Tablet, 1 TAB PO DAILY, (Reported) Scheduled PRN Acetaminophen (Tylenol Extra Strength) 500 Mg Tablet, 1,000 MG PO Q6H PRN for PAIN, (Reported) Allergies Coded Allergies: No Known Allergies (Unverified , 11/04/17) FAISAL RIGGINS MD Sep 21, 2019 17:20
== END 2019-09-21 15:30 | disposition home or self-care (01) | DRG 312 ==
LOC: M ED 21:05 → M ED INP 21:06 → OBSVTOIN 09-20 02:01 → ENRESERVTM 09-20 02:50 → ENRESERVDT 09-20 02:50 → M MS5PR 09-20 03:20
PROVIDERS: ADMIT Family Medicine; ATTEND Student in an Organized Health Care Education/Training Program
DX: I95.2 Hypotension due to drugs (principal); N17.9 Acute kidney failure, unspecified; F10.10 Alcohol abuse, uncomplicated; K76.0 Fatty (change of) liver, not elsewhere classified; I10 Essential (primary) hypertension; E78.5 Hyperlipidemia, unspecified; E66.01 Morbid (severe) obesity due to excess calories; D64.9 Anemia, unspecified; E86.0 Dehydration; T50.2X5A Adverse effect of carbonic-anhydrase inhibitors, benzothiadiazides and other diuretics, initial encounter; Z98.41 Cataract extraction status, right eye; Z98.42 Cataract extraction status, left eye; Z79.01 Long term (current) use of anticoagulants; Z79.899 Other long term (current) drug therapy; Z86.718 Personal history of other venous thrombosis and embolism; Z68.39 Body mass index [BMI] 39.0-39.9, adult

== ENCOUNTER → 2019-10-28 | Outpatient (CLI) | payer OTHER ==
[~2019-10-28] MED LIST changes: +ACET-897 PO; +FISH1000 PO; +SIMV40TA20 PO; +VALS160T3 PO; +VITACHTA PO
--- NOTE | 2019-10-28 13:43 | REP ---
Clinical: Hematuria. Technique: Axial noncontrast images from the lung bases to the pubic symphysis with coronal and sagittal re-formations. Findings: Kidneys demonstrate mild symmetric and likely chronic perinephric stranding without hydroureteronephrosis or nephroureterolithiasis. No obvious renal mass lesion or cystic changes are identified. Liver, spleen, pancreas, gallbladder, and bilateral adrenal glands are normal. The enteric system is without obstruction or acute inflammatory process. Normal terminal ileum and appendix are identified in the right lower quadrant. Pelvis demonstrates normal bladder and age appropriate prostate/seminal vesicles. No ascites. No free air. No adenopathy. Abdominal aorta without aneurysm. Musculoskeletal structures demonstrate degenerative changes without focal abnormality. Lung bases are clear. Impression: 1. Mild symmetric chronic-appearing perinephric stranding. No further urinary tract pathology appreciated. 2. No acute abdominopelvic pathology. Electronically Signed by Gordy Pritchett MD 10/28/2019 01:34 P
== END ==
LOC: M RAD 12:58
PROVIDERS: ATTEND Nurse Practitioner Family
DX: R31.9 Hematuria, unspecified (principal); N17.9 Acute kidney failure, unspecified

== ENCOUNTER → 2021-05-08 | Outpatient (REF) | payer OTHER ==
[~2021-05-08] MED LIST changes: -CLIN150C14 PO; +CLIN150C17 PO
[2021-05-08 14:54] LABS: FOLATE 18.2 NG/ML; MAGNESIUM LEVEL 1.7 MG/DL (1.8-2.4)
== END ==
LOC: M LAB REF 12:50
PROVIDERS: ATTEND Nurse Practitioner Family
DX: D50.9 Iron deficiency anemia, unspecified (principal); D64.9 Anemia, unspecified; E83.42 Hypomagnesemia

== ENCOUNTER 2022-05-14 11:52 | Emergency (ER) | payer OTHER ==
[~2022-05-14] VITALS: Ht 182.9 cm; Wt 138.5 kg
[2022-05-14] MEDS ORDERED: TRIA37.577 (12:00)
[2022-05-14 14:11] LABS: BASO % 0.6 % (0.0-1.0); EOS # 0.2 10^3/uL (0.0-0.5); EOS % 2.9 % (0.0-3.0); HEMOGLOBIN 8.4 g/dl (13.5-17.5); LYMPH # 1.1 10^3/uL (1.5-5.0); LYMPH % 16.5 % (24.0-44.0); MEAN CORPUSCULAR HEMOGLOBIN 28.2 pg (27.0-33.0); MONO # 0.8 10^3/uL (0.0-0.8); MONO % 11.9 % (2.0-8.0); NEUTROPHILS # 4.6 10^3/uL (1.5-8.5); NEUTROPHILS % 67.4 % (36.0-66.0); PLATELET COUNT, AUTOMATED 293 10^3/uL (150-450); RED BLOOD COUNT 2.98 10^6/uL (4.30-6.10); WHITE BLOOD COUNT 6.8 10^3/uL (4.0-10.0)
[2022-05-14 14:47] LABS: C REACTIVE PROTEIN QUANTITATIV 2.62 MG/DL (0.00-0.30); CALCIUM LEVEL 8.6 MG/DL (8.5-10.1); CREATININE FOR GFR 1.58 MG/DL (0.70-1.30); POTASSIUM SERUM 3.4 MEQ/L (3.5-5.1)
[2022-05-14 14:49] LABS: ERYTHROCYTE SEDIMENTATION RATE 94 mm/hr (0-20)
[2022-05-14] MEDS ORDERED: ACETAMINOPHEN 500 MG TAB PO ONE (16:05)
[2022-05-14 17:12] LABS: RSV AMPLIFICATION NEGATIVE (NEGATIVE)
[2022-05-14 17:46] VITALS: BP 135/75
== END 2022-05-14 17:55 | disposition left against medical advice (07) ==
LOC: M ED 11:52
DX: R22.41 Localized swelling, mass and lump, right lower limb (principal); D64.9 Anemia, unspecified; N17.9 Acute kidney failure, unspecified; I10 Essential (primary) hypertension; Z86.718 Personal history of other venous thrombosis and embolism; E78.5 Hyperlipidemia, unspecified; K21.9 Gastro-esophageal reflux disease without esophagitis; M10.9 Gout, unspecified; Z87.891 Personal history of nicotine dependence; Z79.01 Long term (current) use of anticoagulants; Z79.899 Other long term (current) drug therapy

== ENCOUNTER 2022-10-27 06:38 | Inpatient (IN) | payer OTHER ==
[2022-10-27] VITALS (17 sets, daily range): BP systolic 128–214; BP diastolic 70–100; O2SAT 88–100
[~2022-10-27] VITALS: Ht 182.9 cm; Wt 141.4 kg
[~2022-10-27 06:38] MED LIST changes: +TRIA37.577 PO
[2022-10-27 07:45] LABS: BASO % 0.9 % (0.0-1.0); EOS # 0.2 10^3/uL (0.0-0.5); EOS % 5.3 % (0.0-3.0); LYMPH # 0.6 10^3/uL (1.5-5.0); LYMPH % 13.4 % (24.0-44.0); MEAN CORPUSCULAR HEMOGLOBIN 25.2 pg (27.0-33.0); MEAN CORPUSCULAR VOLUME 93.4 fl (80.0-96.0); MONO # 0.5 10^3/uL (0.0-0.8); MONO % 11.2 % (2.0-8.0); NEUTROPHILS # 3.1 10^3/uL (1.5-8.5); NEUTROPHILS % 68.3 % (36.0-66.0); PLATELET COUNT, AUTOMATED 250 10^3/uL (150-450); RED BLOOD COUNT 2.74 10^6/uL (4.30-6.10); WHITE BLOOD COUNT 4.5 10^3/uL (4.0-10.0)
[2022-10-27 07:46] LABS: HEMATOCRIT 25.6 % (42.0-52.0); HEMOGLOBIN 6.9 g/dl (13.5-17.5)
[2022-10-27 07:57] LABS: INR 1.54; PROTHROMBIN TIME 18.8 SECONDS (12.5-14.5)
[2022-10-27 08:24] LABS: ALBUMIN 3.1 G/DL (3.2-5.2); BILIRUBIN,DIRECT 0.3 MG/DL (<0.4); BILIRUBIN,TOTAL 0.8 MG/DL (0.3-1.2); CALCIUM LEVEL 8.8 MG/DL (8.3-10.6); CK-MB VALUE MASS 1.8 NG/ML (<3.6); CREATININE FOR GFR 1.49 MG/DL (0.70-1.30); GLOMERULAR FILTRATION RATE 51.2 (>49); MB/CK RELATIVE INDEX 1.48 (< OR =4); POTASSIUM SERUM 3.7 MMOL/L (3.5-5.1); THYROID STIMULATING HORMONE 2.144 uIU/ML (0.55-4.78); THYROXINE (T4) 9.6 UG/DL (4.5-10.9); TOTAL PROTEIN 6.7 G/DL (5.7-8.2)
[2022-10-27] MEDS ORDERED: FUROSEMIDE 40MG/4ML VIAL IV ONE (08:30)
[2022-10-27 08:36] LABS: RSV AMPLIFICATION NEGATIVE (NEGATIVE)
[2022-10-27] MEDS ORDERED: VITMTA PO (08:54)
[2022-10-27] MEDS ORDERED: OMEG10002 PO (08:54)
[2022-10-27] MEDS ORDERED: HOME MED LIST COMPLETE! XX SCH (08:55)
[2022-10-27] MEDS ORDERED: ISOVUE-370 76% 100ML VIAL As Ordered ONE (10:09)
[2022-10-27 10:50] LABS: ABG pH (ARTERIAL) 7.437 UNITS (7.350-7.450)
[2022-10-27 10:51] LABS: ABG BASE EXCESS 1.1 (-2.0-2.0); ABG HCO3 25.3 MEQ/L (22.0-26.0); ABG O2 SATURATION 98.4 % (95.0-99.0); ABG PARTIAL PRESSURE CO2 38.4 mmHg (35.0-45.0); ABG PARTIAL PRESSURE O2 110.8 mmHg (75.0-100.0); ABG STANDARD HCO3 25.5 MEQ/L (22.0-26.0); ABG TOTAL CO2 26.5 MEQ/L (23.0-31.0)
[2022-10-27 11:41] LABS: MAGNESIUM LEVEL 1.5 MG/DL (1.8-2.4); PHOSPHORUS LEVEL 2.7 MG/DL (2.4-5.1)
[2022-10-27] MEDS ORDERED: LORazepam 2 MG TAB PO PRN (12:50)
[2022-10-27 13:45] LABS: PERCENT SATURATION 4.4 % (19.7-50.0)
[2022-10-27 13:54] LABS: FOLATE 6.2 NG/ML (>5.4)
[2022-10-27] MEDS: THIAMINE 100 MG TAB PO SCH ×2 (15:04→20:22)
[2022-10-27] MEDS: FOLIC ACID 1MG TAB PO SCH (15:04)
[2022-10-27] MEDS: MULTIVITAMINS/MINERALS THERAP 1 TAB PO SCH (15:04)
[2022-10-27] MEDS: DYAZIDE 37.5/25 CAP (TRIAM/HCTZ) PO SCH (15:04)
[2022-10-27] MEDS: FUROSEMIDE 40MG/4ML VIAL IV SCH (17:06)
[2022-10-27] MEDS: MAGNESIUM OXIDE 400MG TAB (MAG-OX) PO SCH ×2 (17:06→20:22)
[2022-10-27] MEDS ORDERED: FERRIC CARBOXYMALTOSE INJ 1,000 MG, VIAL MATE ADAPTER 1 EACH in NS 250 ML IV ONE (18:00)
[2022-10-27 20:19] LABS: HEMATOCRIT 26.1 % (42.0-52.0); HEMOGLOBIN 7.5 g/dl (13.5-17.5); MEAN CORPUSCULAR HEMOGLOBIN 26.5 pg (27.0-33.0); MEAN CORPUSCULAR HGB CONC 28.7 g/dl (32.0-36.5); MEAN CORPUSCULAR VOLUME 92.2 fl (80.0-96.0); PLATELET COUNT, AUTOMATED 263 10^3/uL (150-450); RED BLOOD COUNT 2.83 10^6/uL (4.30-6.10); WHITE BLOOD COUNT 5.2 10^3/uL (4.0-10.0)
[2022-10-28] VITALS (32 sets, daily range): BP systolic 114–156; BP diastolic 55–91; O2SAT 92–98
[2022-10-28 05:26] LABS: HEMATOCRIT 23.6 % (42.0-52.0); MEAN CORPUSCULAR VOLUME 92.9 fl (80.0-96.0); PLATELET COUNT, AUTOMATED 244 10^3/uL (150-450); RED BLOOD COUNT 2.54 10^6/uL (4.30-6.10); WHITE BLOOD COUNT 4.3 10^3/uL (4.0-10.0)
[2022-10-28 05:46] LABS: HEMOGLOBIN 6.6 g/dl (13.5-17.5)
[2022-10-28 06:01] LABS: ALBUMIN 2.9 G/DL (3.2-5.2); BILIRUBIN,DIRECT 0.4 MG/DL (<0.4); BILIRUBIN,TOTAL 0.8 MG/DL (0.3-1.2); CALCIUM LEVEL 8.6 MG/DL (8.3-10.6); CHOLESTEROL RISK RATIO 4.02 (<5); CREATININE FOR GFR 1.54 MG/DL (0.70-1.30); GLOMERULAR FILTRATION RATE 49.3 (>49); HDL CHOLESTEROL 30.8 MG/DL (>40); LDL CHOLESTEROL 72.8 MG/DL (<100); MAGNESIUM LEVEL 1.6 MG/DL (1.8-2.4); POTASSIUM SERUM 3.4 MMOL/L (3.5-5.1); TOTAL PROTEIN 6.3 G/DL (5.7-8.2)
[2022-10-28] MEDS ORDERED: POTASSIUM CHLORIDE 10MEQ SR TABLET PO ONE (07:05)
[2022-10-28] MEDS ORDERED: MAG SULF 1GM/100ML (MAG RUN) 1 GM in IV 1 EA IV ONE (07:05)
[2022-10-28 07:45] LABS: HEMOGLOBIN A1c 5.3 % (4.0-6.0)
[2022-10-28] MEDS: FUROSEMIDE 40MG/4ML VIAL IV SCH ×2 (08:38→16:12)
[2022-10-28] MEDS: FOLIC ACID 1MG TAB PO SCH (08:39)
[2022-10-28] MEDS: THIAMINE 100 MG TAB PO SCH ×2 (08:39→21:09)
[2022-10-28] MEDS: MAGNESIUM OXIDE 400MG TAB (MAG-OX) PO SCH ×3 (08:39→21:09)
[2022-10-28] MEDS: MULTIVITAMINS/MINERALS THERAP 1 TAB PO SCH (08:39)
[2022-10-28] MEDS: DYAZIDE 37.5/25 CAP (TRIAM/HCTZ) PO SCH (08:39)
[2022-10-28 10:18] LABS: HEMATOCRIT 26.4 % (42.0-52.0); HEMOGLOBIN 7.7 g/dl (13.5-17.5)
[2022-10-28] MEDS: OMEGA-3 1000MG CAPSULE PO SCH (10:55)
[2022-10-28 16:42] LABS: HEMATOCRIT 27.7 % (42.0-52.0); HEMOGLOBIN 7.9 g/dl (13.5-17.5)
[2022-10-28 18:45] LABS: CALCIUM LEVEL 9.3 MG/DL (8.3-10.6); POTASSIUM SERUM 3.5 MMOL/L (3.5-5.1)
[2022-10-28 18:55] LABS: MAGNESIUM LEVEL 1.9 MG/DL (1.8-2.4)
[2022-10-28 20:02] LABS: CREATININE FOR GFR 1.36 MG/DL (0.70-1.30); GLOMERULAR FILTRATION RATE 56.9 (>49)
[2022-10-29] VITALS (27 sets, daily range): BP systolic 102–129; BP diastolic 56–62; O2SAT 91–98
[2022-10-29] MEDS: FUROSEMIDE 40MG/4ML VIAL IV SCH ×3 (01:14→16:27)
[2022-10-29 04:51] LABS: HEMATOCRIT 25.1 % (42.0-52.0); HEMOGLOBIN 7.3 g/dl (13.5-17.5); MEAN CORPUSCULAR HEMOGLOBIN 26.6 pg (27.0-33.0); MEAN CORPUSCULAR HGB CONC 29.1 g/dl (32.0-36.5); MEAN CORPUSCULAR VOLUME 91.6 fl (80.0-96.0); PLATELET COUNT, AUTOMATED 248 10^3/uL (150-450); RED BLOOD COUNT 2.74 10^6/uL (4.30-6.10); WHITE BLOOD COUNT 4.3 10^3/uL (4.0-10.0)
[2022-10-29 05:12] LABS: CALCIUM LEVEL 9.3 MG/DL (8.3-10.6); CREATININE FOR GFR 1.48 MG/DL (0.70-1.30); GLOMERULAR FILTRATION RATE 51.6 (>49); MAGNESIUM LEVEL 1.7 MG/DL (1.8-2.4); POTASSIUM SERUM 3.2 MMOL/L (3.5-5.1)
[2022-10-29] MEDS ORDERED: POTASSIUM CHL PWD 20MEQ PACKET PO ONE (06:00)
[2022-10-29] MEDS ORDERED: POTASSIUM CHLORIDE 10MEQ SR TABLET PO ONE (08:00)
[2022-10-29] MEDS ORDERED: MAG SULF 1GM/100ML (MAG RUN) 1 GM in IV 1 EA IV ONE (08:00)
[2022-10-29] MEDS: THIAMINE 100 MG TAB PO SCH ×2 (09:10→20:35)
[2022-10-29] MEDS: MULTIVITAMINS/MINERALS THERAP 1 TAB PO SCH (09:10)
[2022-10-29] MEDS: MAGNESIUM OXIDE 400MG TAB (MAG-OX) PO SCH ×3 (09:11→20:35)
[2022-10-29] MEDS: FOLIC ACID 1MG TAB PO SCH (09:12)
[2022-10-29] MEDS: DYAZIDE 37.5/25 CAP (TRIAM/HCTZ) PO SCH (09:12)
[2022-10-29] MEDS: OMEGA-3 1000MG CAPSULE PO SCH (10:18)
[2022-10-29 12:27] LABS: HEMATOCRIT 27.3 % (42.0-52.0)
[2022-10-29 18:03] LABS: HEMATOCRIT 28.9 % (42.0-52.0); HEMOGLOBIN 8.3 g/dl (13.5-17.5)
[2022-10-29 18:33] LABS: CALCIUM LEVEL 9.8 MG/DL (8.3-10.6); CREATININE FOR GFR 1.56 MG/DL (0.70-1.30); GLOMERULAR FILTRATION RATE 48.6 (>49); MAGNESIUM LEVEL 1.8 MG/DL (1.8-2.4); POTASSIUM SERUM 3.8 MMOL/L (3.5-5.1)
[2022-10-29] MEDS: POTASSIUM CHLORIDE 10MEQ SR TABLET PO SCH (20:35)
[2022-10-29] MEDS: APIXABAN 5 MG TAB (ELIQUIS) PO SCH (20:35)
[2022-10-30] VITALS (22 sets, daily range): BP systolic 115–134; BP diastolic 57–63; O2SAT 84–96
[2022-10-30] MEDS: FUROSEMIDE 40MG/4ML VIAL IV SCH ×2 (00:20→08:21)
[2022-10-30 00:36] LABS: HEMATOCRIT 24.1 % (42.0-52.0); HEMOGLOBIN 7.1 g/dl (13.5-17.5)
[2022-10-30 04:58] LABS: HEMATOCRIT 24.5 % (42.0-52.0); HEMOGLOBIN 7.2 g/dl (13.5-17.5); MEAN CORPUSCULAR HEMOGLOBIN 26.8 pg (27.0-33.0); MEAN CORPUSCULAR HGB CONC 29.4 g/dl (32.0-36.5); MEAN CORPUSCULAR VOLUME 91.1 fl (80.0-96.0); PLATELET COUNT, AUTOMATED 234 10^3/uL (150-450); RED BLOOD COUNT 2.69 10^6/uL (4.30-6.10); WHITE BLOOD COUNT 4.5 10^3/uL (4.0-10.0)
[2022-10-30 05:30] LABS: CREATININE FOR GFR 1.49 MG/DL (0.70-1.30); GLOMERULAR FILTRATION RATE 51.2 (>49); MAGNESIUM LEVEL 1.7 MG/DL (1.8-2.4); POTASSIUM SERUM 3.5 MMOL/L (3.5-5.1)
[2022-10-30] MEDS ORDERED: MAGNESIUM OXIDE 400MG TAB (MAG-OX) PO ONE (07:00)
[2022-10-30] MEDS ORDERED: POTASSIUM CHL PWD 20MEQ PACKET PO ONE (07:00)
[2022-10-30] MEDS: POTASSIUM CHLORIDE 10MEQ SR TABLET PO SCH ×2 (08:19→20:28)
[2022-10-30] MEDS: MAGNESIUM OXIDE 400MG TAB (MAG-OX) PO SCH (08:19)
[2022-10-30] MEDS: MULTIVITAMINS/MINERALS THERAP 1 TAB PO SCH (08:20)
[2022-10-30] MEDS: FOLIC ACID 1MG TAB PO SCH (08:20)
[2022-10-30] MEDS: DYAZIDE 37.5/25 CAP (TRIAM/HCTZ) PO SCH (08:20)
[2022-10-30] MEDS: OMEGA-3 1000MG CAPSULE PO SCH (08:20)
[2022-10-30 09:15] LABS: HEMATOCRIT 26.5 % (42.0-52.0); HEMOGLOBIN 7.6 g/dl (13.5-17.5)
[2022-10-30 11:48] LABS: HEMATOCRIT 28.4 % (42.0-52.0); HEMOGLOBIN 8.3 g/dl (13.5-17.5)
[2022-10-30] MEDS: FERROUS SULFATE 325MG TAB PO SCH ×2 (12:35→20:27)
[2022-10-30] MEDS: ACETAMINOPHEN TAB 650MG DOSE (2X325MG) PO PRN (12:43)
[2022-10-30] MEDS ORDERED: TORSEMIDE 20 MG TAB PO SCH (17:00)
[2022-10-30 18:50] LABS: CALCIUM LEVEL 9.2 MG/DL (8.3-10.6); CREATININE FOR GFR 1.59 MG/DL (0.70-1.30); GLOMERULAR FILTRATION RATE 47.5 (>49); MAGNESIUM LEVEL 1.8 MG/DL (1.8-2.4)
[2022-10-30] MEDS: APIXABAN 5 MG TAB (ELIQUIS) PO SCH (20:28)
[2022-10-31] VITALS (17 sets, daily range): BP systolic 114–138; BP diastolic 56–69; O2SAT 91–98
[2022-10-31 04:18] LABS: HEMATOCRIT 25.1 % (42.0-52.0); HEMOGLOBIN 7.2 g/dl (13.5-17.5); MEAN CORPUSCULAR HEMOGLOBIN 26.7 pg (27.0-33.0); MEAN CORPUSCULAR HGB CONC 28.7 g/dl (32.0-36.5); PLATELET COUNT, AUTOMATED 239 10^3/uL (150-450); WHITE BLOOD COUNT 4.7 10^3/uL (4.0-10.0)
[2022-10-31 04:39] LABS: CREATININE FOR GFR 1.67 MG/DL (0.70-1.30); GLOMERULAR FILTRATION RATE 44.9 (>49); MAGNESIUM LEVEL 1.9 MG/DL (1.8-2.4); POTASSIUM SERUM 3.7 MMOL/L (3.5-5.1)
[2022-10-31] MEDS: OMEGA-3 1000MG CAPSULE PO SCH (08:10)
[2022-10-31] MEDS: MULTIVITAMINS/MINERALS THERAP 1 TAB PO SCH (08:10)
[2022-10-31] MEDS: FOLIC ACID 1MG TAB PO SCH (08:10)
[2022-10-31] MEDS: APIXABAN 5 MG TAB (ELIQUIS) PO SCH (08:10)
[2022-10-31] MEDS: FERROUS SULFATE 325MG TAB PO SCH (08:10)
[2022-10-31] MEDS: POTASSIUM CHLORIDE 10MEQ SR TABLET PO SCH (08:11)
[2022-10-31] MEDS: ACETAMINOPHEN TAB 650MG DOSE (2X325MG) PO PRN (08:12)
[2022-10-31] MEDS ORDERED: SPIRONOLACTONE 50 MG TAB PO SCH (09:00)
[2022-10-31] MEDS ORDERED: FUROSEMIDE 40 MG TAB PO SCH (09:00)
[2022-10-31] MEDS ORDERED: FARX1TAB3 PO (09:48)
[2022-10-31 10:25] LABS: HEMATOCRIT 25.5 % (42.0-52.0); HEMOGLOBIN 7.4 g/dl (13.5-17.5)
[2022-10-31] MEDS ORDERED: POTA-151 PO (10:37)
[2022-10-31] MEDS ORDERED: FERR1TAB8 PO (10:37)
[2022-10-31] MEDS ORDERED: FURO40TA2 PO (10:37)
[2022-10-31] MEDS ORDERED: METO1TAB87 PO (10:38)
[2022-10-31] MEDS ORDERED: METO5TA PO (14:11)
== END 2022-10-31 16:01 | disposition home health service (06) | DRG 291 ==
LOC: M ED 06:38 → M ED INP 10:03 → ENRESERV 10:58 → M PCU 13:00
PROVIDERS: ADMIT Student in an Organized Health Care Education/Training Program; ATTEND Internal Medicine
PROC: 30233N1 Transfusion of Nonautologous Red Blood Cells into Peripheral Vein, Percutaneous Approach (ICD-10-PCS; 2022-10-27)
PROC: B246ZZZ Ultrasonography of Right and Left Heart (ICD-10-PCS; principal; 2022-10-28)
DX: I13.0 Hypertensive heart and chronic kidney disease with heart failure and stage 1 through stage 4 chronic kidney disease, or unspecified chronic kidney disease (principal); I50.23 Acute on chronic systolic (congestive) heart failure; J90 Pleural effusion, not elsewhere classified; J98.11 Atelectasis; E87.3 Alkalosis; E78.5 Hyperlipidemia, unspecified; K76.0 Fatty (change of) liver, not elsewhere classified; N18.30 Chronic kidney disease, stage 3 unspecified; E66.9 Obesity, unspecified; F10.20 Alcohol dependence, uncomplicated; T50.2X6A Underdosing of carbonic-anhydrase inhibitors, benzothiadiazides and other diuretics, initial encounter; D50.9 Iron deficiency anemia, unspecified; R31.9 Hematuria, unspecified; Z98.41 Cataract extraction status, right eye; Z98.42 Cataract extraction status, left eye; Z87.891 Personal history of nicotine dependence; Z79.01 Long term (current) use of anticoagulants; Z79.899 Other long term (current) drug therapy; Z86.718 Personal history of other venous thrombosis and embolism; Z91.128 Patient's intentional underdosing of medication regimen for other reason

== ENCOUNTER 2022-11-11 10:44 | Inpatient (IN) | payer OTHER ==
[~2022-11-11] VITALS: Ht 182.9 cm; Wt 127.8 kg
[~2022-11-11 10:44] MED LIST changes: +FARX1TAB3 PO; +FERR1TAB8 PO; +FURO40TA2 PO; +METO1TAB87 PO; +METO5TA PO; +OMEG10002 PO; +POTA-151 PO; +VITMTA PO
[2022-11-11] MEDS ORDERED: NS 500 ML IV ONE (11:00)
[2022-11-11] MEDS ORDERED: LORazepam 2 MG/ML 1ML VIAL IV STA (11:01)
[2022-11-11] MEDS ORDERED: ACETAMINOPHEN 500 MG TAB PO ONE (11:50)
[2022-11-11 12:01] LABS: BASO % 0.3 % (0.0-1.0); EOS # 0.2 10^3/uL (0.0-0.5); EOS % 3.6 % (0.0-3.0); HEMATOCRIT 30.4 % (42.0-52.0); HEMOGLOBIN 8.9 g/dl (13.5-17.5); LYMPH # 0.6 10^3/uL (1.5-5.0); LYMPH % 10.9 % (24.0-44.0); MEAN CORPUSCULAR HEMOGLOBIN 27.6 pg (27.0-33.0); MEAN CORPUSCULAR HGB CONC 29.3 g/dl (32.0-36.5); MEAN CORPUSCULAR VOLUME 94.1 fl (80.0-96.0); MONO # 0.5 10^3/uL (0.0-0.8); MONO % 9.2 % (2.0-8.0); NEUTROPHILS # 4.3 10^3/uL (1.5-8.5); NEUTROPHILS % 75.3 % (36.0-66.0); PLATELET COUNT, AUTOMATED 388 10^3/uL (150-450); RED BLOOD COUNT 3.23 10^6/uL (4.30-6.10); WHITE BLOOD COUNT 5.8 10^3/uL (4.0-10.0)
[2022-11-11 12:09] LABS: ERYTHROCYTE SEDIMENTATION RATE 79 mm/hr (0-20)
[2022-11-11 12:20] LABS: LIPASE 24 U/L (12-53)
[2022-11-11 12:23] LABS: ALBUMIN 3.1 G/DL (3.2-5.2); ALKALINE PHOSPHATASE 124 U/L (46-116); ALT/SGPT 21 U/L (7.0-40); AST/SGOT 26 U/L (<34); BILIRUBIN,TOTAL 0.9 MG/DL (0.3-1.2); BLOOD UREA NITROGEN 23 MG/DL (9-23); CALCIUM LEVEL 8.7 MG/DL (8.3-10.6); CARBON DIOXIDE LEVEL 32 MMOL/L (20-31); CHLORIDE LEVEL 97 MMOL/L (98-107); CREATININE FOR GFR 1.26 MG/DL (0.70-1.30); GLOMERULAR FILTRATION RATE > 60.0 (>49); GLUCOSE, FASTING 128 MG/DL (74-106); POTASSIUM SERUM 4.4 MMOL/L (3.5-5.1); SODIUM LEVEL 138 MMOL/L (136-145); TOTAL PROTEIN 7.6 G/DL (5.7-8.2)
[2022-11-11] MEDS ORDERED: FUROSEMIDE 40MG/4ML VIAL IV ONE (14:25)
[2022-11-11] MEDS ORDERED: DEXTROSE 50% 50ML SYRINGE IV PRN (15:00)
[2022-11-11] MEDS ORDERED: GLUCAGON INJ 1MG VIAL SC PRN (15:00)
[2022-11-11] MEDS ORDERED: GLUCOSE 4GM CHEW TABLET PO PRN (15:00)
[2022-11-11] MEDS ORDERED: LORazepam 2 MG TAB PO PRN (16:15)
[2022-11-11 16:35] VITALS: BP 134/60
[2022-11-11] MEDS ORDERED: LISI5TAB11 PO (17:24)
[2022-11-11] MEDS ORDERED: FURO40TA2 PO (17:24)
[2022-11-11] MEDS ORDERED: POTA1TAB14 PO (17:24)
[2022-11-11] MEDS ORDERED: FERR325T3 PO (17:24)
[2022-11-11] MEDS ORDERED: FARX1TAB3 PO (17:24)
[2022-11-11] MEDS ORDERED: METO25TA4 PO (17:24)
[2022-11-11] MEDS ORDERED: ERGO500029 PO (17:24)
[2022-11-11] MEDS ORDERED: HOME MED LIST COMPLETE! XX SCH (17:25)
[2022-11-11 17:30] VITALS: BP 134/60
[2022-11-11] MEDS: INSULIN LISPRO (NovoLOG) PER UNIT SC SCH (17:30)
[2022-11-11] MEDS ORDERED: FUROSEMIDE 40MG/4ML VIAL IV SCH (18:00)
[2022-11-11 18:38] LABS: CALCIUM LEVEL 8.4 MG/DL (8.3-10.6); CREATININE FOR GFR 1.31 MG/DL (0.70-1.30); GLOMERULAR FILTRATION RATE 59.4 (>49); POTASSIUM SERUM 4.2 MMOL/L (3.5-5.1)
[2022-11-11] MEDS: ceFAZolin SOD 1 GM in D5W MINI-BAG PLUS 50 ML IV SCH (18:46)
[2022-11-11] MEDS: THIAMINE 100 MG TAB PO SCH (18:47)
[2022-11-11 20:00] VITALS: BP 100/39
[2022-11-11 20:50] VITALS: BP 130/64
[2022-11-11] MEDS ORDERED: INSULIN LISPRO (NovoLOG) PER UNIT SC SCH (21:00)
[2022-11-11] MEDS ORDERED: CARVedilol 6.25 MG TAB PO SCH (21:00)
[2022-11-11] MEDS: APIXABAN 5 MG TAB (ELIQUIS) PO SCH (21:11)
[2022-11-11] MEDS: **hydrALAZINE** 10 MG TAB PO SCH (21:12)
[2022-11-11] MEDS: ISOSORBIDE DIN (ISORDIL) 10MG TAB PO SCH (21:12)
[2022-11-11] MEDS: FUROSEMIDE 40MG/4ML VIAL IV SCH (21:12)
[2022-11-11] MEDS: PERCOCET 5MG/325MG TAB PO PRN (21:14)
[2022-11-11] MEDS: ACETAMINOPHEN TAB 650MG DOSE (2X325MG) PO PRN (21:14)
[2022-11-11] MEDS ORDERED: IBUPROFEN 200MG TAB PO ONE (22:30)
[2022-11-11] MEDS ORDERED: PANTOPRAZOLE 20 MG TAB PO ONE (22:30)
[2022-11-11] MEDS ORDERED: PILL CUTTER 1 EACH XX PRN (22:40)
[2022-11-11] MEDS ORDERED: IBUPROFEN 400MG TAB PO ONE (23:00)
[2022-11-12] VITALS (9 sets, daily range): BP systolic 106–130; BP diastolic 53–78
[2022-11-12] MEDS: ceFAZolin SOD 1 GM in D5W MINI-BAG PLUS 50 ML IV SCH ×3 (01:31→18:44)
[2022-11-12] MEDS: **hydrALAZINE** 10 MG TAB PO SCH ×3 (05:33→22:00)
[2022-11-12] MEDS: ISOSORBIDE DIN (ISORDIL) 10MG TAB PO SCH ×3 (05:33→22:00)
[2022-11-12] MEDS: FUROSEMIDE 40MG/4ML VIAL IV SCH (05:58)
[2022-11-12 06:19] LABS: BASO % 0.6 % (0.0-1.0); EOS # 0.3 10^3/uL (0.0-0.5); EOS % 5.5 % (0.0-3.0); HEMATOCRIT 27.1 % (42.0-52.0); HEMOGLOBIN 8.1 g/dl (13.5-17.5); LYMPH # 0.7 10^3/uL (1.5-5.0); LYMPH % 13.4 % (24.0-44.0); MEAN CORPUSCULAR HGB CONC 29.9 g/dl (32.0-36.5); MEAN CORPUSCULAR VOLUME 93.8 fl (80.0-96.0); MONO # 0.5 10^3/uL (0.0-0.8); NEUTROPHILS # 3.4 10^3/uL (1.5-8.5); NEUTROPHILS % 69.1 % (36.0-66.0); PLATELET COUNT, AUTOMATED 325 10^3/uL (150-450); RED BLOOD COUNT 2.89 10^6/uL (4.30-6.10); WHITE BLOOD COUNT 4.9 10^3/uL (4.0-10.0)
[2022-11-12 06:44] LABS: CALCIUM LEVEL 8.2 MG/DL (8.3-10.6); CREATININE FOR GFR 1.36 MG/DL (0.70-1.30); GLOMERULAR FILTRATION RATE 56.9 (>49); POTASSIUM SERUM 3.5 MMOL/L (3.5-5.1)
[2022-11-12] MEDS: INSULIN LISPRO (NovoLOG) PER UNIT SC SCH ×3 (07:30→12:00)
[2022-11-12] MEDS: MULTIVITAMINS/MINERALS THERAP 1 TAB PO SCH (09:07)
[2022-11-12] MEDS: FOLIC ACID 1MG TAB PO SCH (09:07)
[2022-11-12] MEDS: THIAMINE 100 MG TAB PO SCH ×2 (09:07→22:29)
[2022-11-12] MEDS: APIXABAN 5 MG TAB (ELIQUIS) PO SCH ×2 (09:07→22:29)
[2022-11-12] MEDS: DAPAGLIFLOZIN PROPANEDIOL 10MG TABLET (FARXIGA) PO SCH (09:07)
[2022-11-12] MEDS: ACETAMINOPHEN TAB 650MG DOSE (2X325MG) PO PRN (12:12)
[2022-11-12] MEDS: PERCOCET 5MG/325MG TAB PO PRN (22:29)
[2022-11-12] MEDS: SENOKOT S TAB PO PRN (22:29)
[2022-11-13 02:00] VITALS: BP 113/61
[2022-11-13] MEDS: ceFAZolin SOD 1 GM in D5W MINI-BAG PLUS 50 ML IV SCH ×3 (02:52→18:15)
[2022-11-13] MEDS: ACETAMINOPHEN TAB 650MG DOSE (2X325MG) PO PRN ×2 (03:05→18:14)
[2022-11-13] MEDS: ISOSORBIDE DIN (ISORDIL) 10MG TAB PO SCH ×3 (05:43→19:36)
[2022-11-13] MEDS: **hydrALAZINE** 10 MG TAB PO SCH ×3 (05:43→19:36)
[2022-11-13] MEDS: PERCOCET 5MG/325MG TAB PO PRN ×2 (05:51→14:18)
[2022-11-13 06:00] VITALS: BP 108/60
[2022-11-13 06:16] LABS: BASO % 0.7 % (0.0-1.0); EOS # 0.3 10^3/uL (0.0-0.5); EOS % 4.8 % (0.0-3.0); HEMATOCRIT 25.5 % (42.0-52.0); HEMOGLOBIN 7.7 g/dl (13.5-17.5); LYMPH # 0.8 10^3/uL (1.5-5.0); LYMPH % 15.6 % (24.0-44.0); MEAN CORPUSCULAR HEMOGLOBIN 27.8 pg (27.0-33.0); MEAN CORPUSCULAR HGB CONC 30.2 g/dl (32.0-36.5); MEAN CORPUSCULAR VOLUME 92.1 fl (80.0-96.0); MONO # 0.6 10^3/uL (0.0-0.8); MONO % 11.7 % (2.0-8.0); NEUTROPHILS # 3.6 10^3/uL (1.5-8.5); NEUTROPHILS % 66.6 % (36.0-66.0); PLATELET COUNT, AUTOMATED 332 10^3/uL (150-450); RED BLOOD COUNT 2.77 10^6/uL (4.30-6.10); WHITE BLOOD COUNT 5.4 10^3/uL (4.0-10.0)
[2022-11-13 06:41] LABS: CALCIUM LEVEL 8.1 MG/DL (8.3-10.6); CREATININE FOR GFR 1.37 MG/DL (0.70-1.30); GLOMERULAR FILTRATION RATE 56.4 (>49); POTASSIUM SERUM 3.4 MMOL/L (3.5-5.1)
[2022-11-13] MEDS: FOLIC ACID 1MG TAB PO SCH (09:37)
[2022-11-13] MEDS: DAPAGLIFLOZIN PROPANEDIOL 10MG TABLET (FARXIGA) PO SCH (09:37)
[2022-11-13] MEDS: MULTIVITAMINS/MINERALS THERAP 1 TAB PO SCH (09:37)
[2022-11-13] MEDS: APIXABAN 5 MG TAB (ELIQUIS) PO SCH ×2 (09:37→19:37)
[2022-11-13] MEDS: THIAMINE 100 MG TAB PO SCH ×2 (09:38→19:37)
[2022-11-13 10:00] VITALS: BP 120/66
[2022-11-13 14:00] VITALS: BP 129/67
[2022-11-13 18:00] VITALS: BP 125/68
[2022-11-13] MEDS ORDERED: ACETAMINOPHEN 1000MG 100ML IV BAG IV ONE (19:05)
[2022-11-13 20:00] VITALS: BP 125/65
[2022-11-13] MEDS ORDERED: PROHANCE 279.3MG/ML 5ML VIAL As Ordered ONE (21:34)
[2022-11-14] VITALS (7 sets, daily range): BP systolic 97–123; BP diastolic 52–67
[2022-11-14] MEDS: ceFAZolin SOD 1 GM in D5W MINI-BAG PLUS 50 ML IV SCH (02:20)
[2022-11-14] MEDS: ACETAMINOPHEN TAB 650MG DOSE (2X325MG) PO PRN ×3 (02:29→18:02)
[2022-11-14] MEDS: **hydrALAZINE** 10 MG TAB PO SCH ×3 (05:54→22:00)
[2022-11-14] MEDS: ISOSORBIDE DIN (ISORDIL) 10MG TAB PO SCH ×3 (05:54→22:00)
[2022-11-14 06:13] LABS: BASO % 0.7 % (0.0-1.0); EOS # 0.4 10^3/uL (0.0-0.5); HEMATOCRIT 26.7 % (42.0-52.0); LYMPH # 0.8 10^3/uL (1.5-5.0); LYMPH % 13.6 % (24.0-44.0); MEAN CORPUSCULAR VOLUME 93.4 fl (80.0-96.0); MONO # 0.6 10^3/uL (0.0-0.8); MONO % 10.9 % (2.0-8.0); NEUTROPHILS % 67.1 % (36.0-66.0); PLATELET COUNT, AUTOMATED 320 10^3/uL (150-450); RED BLOOD COUNT 2.86 10^6/uL (4.30-6.10); WHITE BLOOD COUNT 5.9 10^3/uL (4.0-10.0)
[2022-11-14 06:32] LABS: BLOOD UREA NITROGEN 23 MG/DL (9-23); CALCIUM LEVEL 8.2 MG/DL (8.3-10.6); CARBON DIOXIDE LEVEL 32 MMOL/L (20-31); CHLORIDE LEVEL 95 MMOL/L (98-107); CREATININE FOR GFR 1.26 MG/DL (0.70-1.30); GLOMERULAR FILTRATION RATE > 60.0 (>49); GLUCOSE, FASTING 107 MG/DL (74-106); POTASSIUM SERUM 3.5 MMOL/L (3.5-5.1); SODIUM LEVEL 135 MMOL/L (136-145)
[2022-11-14] MEDS: PIPERACILLIN/TAZOBACTAM SOD 3.375 GM in D5W MINI-BAG PLUS 50 ML IV SCH ×3 (09:09→22:24)
[2022-11-14] MEDS: APIXABAN 5 MG TAB (ELIQUIS) PO SCH ×2 (09:10→20:37)
[2022-11-14] MEDS: THIAMINE 100 MG TAB PO SCH (09:10)
[2022-11-14] MEDS: MULTIVITAMINS/MINERALS THERAP 1 TAB PO SCH (09:10)
[2022-11-14] MEDS: FOLIC ACID 1MG TAB PO SCH (09:10)
[2022-11-14] MEDS: DAPAGLIFLOZIN PROPANEDIOL 10MG TABLET (FARXIGA) PO SCH (09:12)
[2022-11-14] MEDS: VANCOMYCIN HCL 1,000 MG, VIAL MATE ADAPTER 1 EACH in D5W 250 ML IV SCH ×2 (11:20→12:38)
[2022-11-14] MEDS: FUROSEMIDE 40 MG TAB PO SCH (12:38)
[2022-11-14] MEDS ORDERED: VANCOMYCIN HCL 1,000 MG, VIAL MATE ADAPTER 1 EACH in NS 250 ML IV SCH (20:00)
[2022-11-14] MEDS: MOM 30ML SUSPENSION UDC PO PRN (20:37)
[2022-11-14] MEDS: SENOKOT S TAB PO PRN (20:38)
[2022-11-14] MEDS: PERCOCET 5MG/325MG TAB PO PRN (20:38)
[2022-11-14] MEDS ORDERED: KETOROLAC 30 MG/ML 1ML VIAL IV ONE (22:35)
[2022-11-14] MEDS ORDERED: NS 1,000 ML IV ONE (22:35)
[2022-11-15] VITALS (8 sets, daily range): BP systolic 111–140; BP diastolic 56–73
[2022-11-15] MEDS: PIPERACILLIN/TAZOBACTAM SOD 3.375 GM in D5W MINI-BAG PLUS 50 ML IV SCH ×4 (04:05→20:24)
[2022-11-15] MEDS: **hydrALAZINE** 10 MG TAB PO SCH ×3 (06:00→23:14)
[2022-11-15] MEDS: ISOSORBIDE DIN (ISORDIL) 10MG TAB PO SCH ×3 (06:00→23:14)
[2022-11-15] MEDS: ACETAMINOPHEN TAB 650MG DOSE (2X325MG) PO PRN (06:33)
[2022-11-15 07:29] LABS: BASO % 0.7 % (0.0-1.0); EOS # 0.4 10^3/uL (0.0-0.5); HEMATOCRIT 25.5 % (42.0-52.0); HEMOGLOBIN 7.7 g/dl (13.5-17.5); LYMPH # 0.5 10^3/uL (1.5-5.0); LYMPH % 9.9 % (24.0-44.0); MEAN CORPUSCULAR HEMOGLOBIN 28.3 pg (27.0-33.0); MEAN CORPUSCULAR HGB CONC 30.2 g/dl (32.0-36.5); MEAN CORPUSCULAR VOLUME 93.8 fl (80.0-96.0); MONO # 0.5 10^3/uL (0.0-0.8); MONO % 9.2 % (2.0-8.0); NEUTROPHILS % 72.5 % (36.0-66.0); PLATELET COUNT, AUTOMATED 304 10^3/uL (150-450); RED BLOOD COUNT 2.72 10^6/uL (4.30-6.10); WHITE BLOOD COUNT 5.5 10^3/uL (4.0-10.0)
[2022-11-15 08:01] LABS: CREATININE FOR GFR 1.37 MG/DL (0.70-1.30); GLOMERULAR FILTRATION RATE 56.4 (>49); POTASSIUM SERUM 3.6 MMOL/L (3.5-5.1); VANCOMYCIN LEVEL TROUGH 19.5 UG/ML (10.0-20.0)
[2022-11-15] MEDS: MULTIVITAMINS/MINERALS THERAP 1 TAB PO SCH (08:45)
[2022-11-15] MEDS: DAPAGLIFLOZIN PROPANEDIOL 10MG TABLET (FARXIGA) PO SCH (08:45)
[2022-11-15] MEDS: APIXABAN 5 MG TAB (ELIQUIS) PO SCH ×2 (08:45→20:24)
[2022-11-15] MEDS: FUROSEMIDE 40 MG TAB PO SCH (08:45)
[2022-11-15] MEDS: FOLIC ACID 1MG TAB PO SCH (08:45)
[2022-11-15] MEDS: VANCOMYCIN HCL 750 MG, VIAL MATE ADAPTER 1 EACH in D5W 250 ML IV SCH ×2 (10:51→13:27)
[2022-11-15] MEDS: DIMETHICONE 2% OINTMENT(VANICREAM) 70GM TUBE TOP SCH ×2 (13:40→20:24)
[2022-11-15] MEDS: SENOKOT S TAB PO PRN (15:25)
[2022-11-15] MEDS: MOM 30ML SUSPENSION UDC PO PRN (15:25)
[2022-11-15] MEDS: PERCOCET 5MG/325MG TAB PO PRN ×2 (15:26→20:25)
[2022-11-16] MEDS ORDERED: KETOROLAC 30 MG/ML 1ML VIAL IV ONE
[2022-11-16 01:44] VITALS: BP 132/65
[2022-11-16] MEDS: PIPERACILLIN/TAZOBACTAM SOD 3.375 GM in D5W MINI-BAG PLUS 50 ML IV SCH ×4 (03:31→21:24)
[2022-11-16] MEDS: ISOSORBIDE DIN (ISORDIL) 10MG TAB PO SCH ×3 (05:12→21:17)
[2022-11-16] MEDS: **hydrALAZINE** 10 MG TAB PO SCH ×3 (05:12→21:17)
[2022-11-16 06:00] VITALS: BP 131/65
[2022-11-16 06:23] LABS: BASO % 0.5 % (0.0-1.0); EOS # 0.4 10^3/uL (0.0-0.5); EOS % 7.7 % (0.0-3.0); HEMATOCRIT 26.1 % (42.0-52.0); HEMOGLOBIN 7.6 g/dl (13.5-17.5); LYMPH # 0.8 10^3/uL (1.5-5.0); LYMPH % 14.4 % (24.0-44.0); MEAN CORPUSCULAR HEMOGLOBIN 27.7 pg (27.0-33.0); MEAN CORPUSCULAR HGB CONC 29.1 g/dl (32.0-36.5); MEAN CORPUSCULAR VOLUME 95.3 fl (80.0-96.0); MONO # 0.5 10^3/uL (0.0-0.8); MONO % 9.9 % (2.0-8.0); NEUTROPHILS # 3.7 10^3/uL (1.5-8.5); PLATELET COUNT, AUTOMATED 308 10^3/uL (150-450); RED BLOOD COUNT 2.74 10^6/uL (4.30-6.10); WHITE BLOOD COUNT 5.5 10^3/uL (4.0-10.0)
[2022-11-16 06:44] LABS: CALCIUM LEVEL 8.3 MG/DL (8.3-10.6); CREATININE FOR GFR 1.46 MG/DL (0.70-1.30); GLOMERULAR FILTRATION RATE 52.4 (>49); POTASSIUM SERUM 3.7 MMOL/L (3.5-5.1)
[2022-11-16] MEDS: DIMETHICONE 2% OINTMENT(VANICREAM) 70GM TUBE TOP SCH ×2 (09:00→21:25)
[2022-11-16] MEDS: FOLIC ACID 1MG TAB PO SCH (09:07)
[2022-11-16] MEDS: FUROSEMIDE 40 MG TAB PO SCH (09:08)
[2022-11-16] MEDS: MULTIVITAMINS/MINERALS THERAP 1 TAB PO SCH (09:08)
[2022-11-16] MEDS: APIXABAN 5 MG TAB (ELIQUIS) PO SCH ×2 (09:09→21:24)
[2022-11-16] MEDS: DAPAGLIFLOZIN PROPANEDIOL 10MG TABLET (FARXIGA) PO SCH (09:18)
[2022-11-16 10:00] VITALS: BP 115/60
[2022-11-16] MEDS: VANCOMYCIN HCL 750 MG, VIAL MATE ADAPTER 1 EACH in D5W 250 ML IV SCH ×2 (10:44→10:45)
[2022-11-16 14:00] VITALS: BP 115/60
[2022-11-16] MEDS: PERCOCET 5MG/325MG TAB PO PRN ×2 (14:57→21:25)
[2022-11-16 18:00] VITALS: BP 116/62
[2022-11-16 20:00] VITALS: BP 142/72
[2022-11-17 02:00] VITALS: BP 127/60
[2022-11-17] MEDS: PIPERACILLIN/TAZOBACTAM SOD 3.375 GM in D5W MINI-BAG PLUS 50 ML IV SCH ×4 (02:57→21:12)
[2022-11-17] MEDS: ISOSORBIDE DIN (ISORDIL) 10MG TAB PO SCH ×3 (06:00→21:03)
[2022-11-17] MEDS: **hydrALAZINE** 10 MG TAB PO SCH ×3 (06:00→21:02)
[2022-11-17] MEDS: ACETAMINOPHEN TAB 650MG DOSE (2X325MG) PO PRN ×2 (06:21→21:12)
[2022-11-17 06:30] LABS: BASO % 0.8 % (0.0-1.0); EOS # 0.4 10^3/uL (0.0-0.5); EOS % 7.4 % (0.0-3.0); HEMATOCRIT 25.5 % (42.0-52.0); HEMOGLOBIN 7.6 g/dl (13.5-17.5); LYMPH # 0.7 10^3/uL (1.5-5.0); LYMPH % 13.7 % (24.0-44.0); MEAN CORPUSCULAR HEMOGLOBIN 27.9 pg (27.0-33.0); MEAN CORPUSCULAR HGB CONC 29.8 g/dl (32.0-36.5); MEAN CORPUSCULAR VOLUME 93.8 fl (80.0-96.0); MONO # 0.5 10^3/uL (0.0-0.8); MONO % 9.9 % (2.0-8.0); NEUTROPHILS # 3.2 10^3/uL (1.5-8.5); NEUTROPHILS % 67.6 % (36.0-66.0); PLATELET COUNT, AUTOMATED 298 10^3/uL (150-450); RED BLOOD COUNT 2.72 10^6/uL (4.30-6.10); WHITE BLOOD COUNT 4.8 10^3/uL (4.0-10.0)
[2022-11-17 06:56] LABS: CALCIUM LEVEL 8.1 MG/DL (8.3-10.6); CREATININE FOR GFR 1.33 MG/DL (0.70-1.30); GLOMERULAR FILTRATION RATE 58.4 (>49); POTASSIUM SERUM 3.4 MMOL/L (3.5-5.1)
[2022-11-17 06:57] LABS: C REACTIVE PROTEIN QUANTITATIV 5.3 MG/DL (<1.0)
[2022-11-17] MEDS: MULTIVITAMINS/MINERALS THERAP 1 TAB PO SCH (08:49)
[2022-11-17] MEDS: FOLIC ACID 1MG TAB PO SCH (08:49)
[2022-11-17] MEDS: APIXABAN 5 MG TAB (ELIQUIS) PO SCH ×2 (08:49→21:12)
[2022-11-17] MEDS: FUROSEMIDE 40 MG TAB PO SCH (09:03)
[2022-11-17] MEDS: DAPAGLIFLOZIN PROPANEDIOL 10MG TABLET (FARXIGA) PO SCH (09:03)
[2022-11-17] MEDS: DIMETHICONE 2% OINTMENT(VANICREAM) 70GM TUBE TOP SCH ×2 (09:05→21:13)
[2022-11-17] MEDS: VANCOMYCIN HCL 750 MG, VIAL MATE ADAPTER 1 EACH in D5W 250 ML IV SCH ×2 (10:28)
[2022-11-17 14:00] VITALS: BP 134/71
[2022-11-17 20:00] VITALS: BP 144/75
[2022-11-17 21:02] VITALS: BP 134/63
[2022-11-18] VITALS: BP 133/63
[2022-11-18] MEDS: PIPERACILLIN/TAZOBACTAM SOD 3.375 GM in D5W MINI-BAG PLUS 50 ML IV SCH ×4 (02:59→21:06)
[2022-11-18 05:50] VITALS: BP 130/65
[2022-11-18] MEDS: **hydrALAZINE** 10 MG TAB PO SCH ×3 (05:52→20:01)
[2022-11-18] MEDS: ISOSORBIDE DIN (ISORDIL) 10MG TAB PO SCH ×3 (05:52→20:01)
[2022-11-18 06:06] LABS: BASO % 0.8 % (0.0-1.0); EOS # 0.4 10^3/uL (0.0-0.5); EOS % 7.2 % (0.0-3.0); HEMATOCRIT 25.8 % (42.0-52.0); HEMOGLOBIN 7.8 g/dl (13.5-17.5); LYMPH # 0.8 10^3/uL (1.5-5.0); LYMPH % 14.7 % (24.0-44.0); MEAN CORPUSCULAR HGB CONC 30.2 g/dl (32.0-36.5); MEAN CORPUSCULAR VOLUME 92.5 fl (80.0-96.0); MONO # 0.5 10^3/uL (0.0-0.8); MONO % 9.9 % (2.0-8.0); NEUTROPHILS # 3.5 10^3/uL (1.5-8.5); NEUTROPHILS % 66.8 % (36.0-66.0); PLATELET COUNT, AUTOMATED 322 10^3/uL (150-450); RED BLOOD COUNT 2.79 10^6/uL (4.30-6.10); WHITE BLOOD COUNT 5.3 10^3/uL (4.0-10.0)
[2022-11-18 06:35] LABS: BLOOD UREA NITROGEN 23 MG/DL (9-23); CALCIUM LEVEL 8.3 MG/DL (8.3-10.6); CARBON DIOXIDE LEVEL 29 MMOL/L (20-31); CHLORIDE LEVEL 96 MMOL/L (98-107); CREATININE FOR GFR 1.23 MG/DL (0.70-1.30); GLOMERULAR FILTRATION RATE > 60.0 (>49); GLUCOSE, FASTING 105 MG/DL (74-106); POTASSIUM SERUM 3.4 MMOL/L (3.5-5.1); SODIUM LEVEL 133 MMOL/L (136-145)
[2022-11-18 08:00] VITALS: BP 128/67
[2022-11-18] MEDS: ACETAMINOPHEN TAB 650MG DOSE (2X325MG) PO PRN (09:32)
[2022-11-18] MEDS: MULTIVITAMINS/MINERALS THERAP 1 TAB PO SCH (09:32)
[2022-11-18] MEDS: APIXABAN 5 MG TAB (ELIQUIS) PO SCH ×2 (09:33→21:05)
[2022-11-18] MEDS: FOLIC ACID 1MG TAB PO SCH (09:33)
[2022-11-18] MEDS: FUROSEMIDE 40 MG TAB PO SCH (09:33)
[2022-11-18] MEDS: DAPAGLIFLOZIN PROPANEDIOL 10MG TABLET (FARXIGA) PO SCH (09:34)
[2022-11-18] MEDS: DIMETHICONE 2% OINTMENT(VANICREAM) 70GM TUBE TOP SCH ×2 (09:36→21:06)
[2022-11-18 10:00] VITALS: BP 157/78
[2022-11-18] MEDS: VANCOMYCIN HCL 750 MG, VIAL MATE ADAPTER 1 EACH in D5W 250 ML IV SCH ×2 (11:00→11:01)
[2022-11-18] MEDS ORDERED: LIDOCAINE 1% MDV 20ML VIAL As Ordered ONE (15:07)
[2022-11-18 16:20] LABS: SOURCE, BODY FLUID LFT KNEE; SYNOVIAL FLUID COLOR RED (COLORLESS)
[2022-11-18] MEDS: POTASSIUM CHLORIDE 10MEQ SR TABLET PO SCH ×2 (16:29→21:06)
[2022-11-18 17:36] LABS: CRYSTALS, BODY FLUID NONE SEEN (NONE SEEN); SOURCE, BODY FLUID CRYSTALS LFT KNEE
[2022-11-18 17:54] LABS: SOURCE, BODY FLUID GLUCOSE LFT KNEE
[2022-11-18 18:00] VITALS: BP 123/75
[2022-11-18 18:56] LABS: SOURCE, BODY FLUID URIC ACID LFT KNEE; URIC ACID, BODY FLUID 4.6 MG/DL (NOT ESTABLISHED)
[2022-11-18] MEDS ORDERED: GABAPENTIN 100 MG CAP PO ONE (19:40)
[2022-11-18 20:00] VITALS: BP 124/75
[2022-11-19] VITALS (8 sets, daily range): BP systolic 93–130; BP diastolic 56–76
[2022-11-19] MEDS: PIPERACILLIN/TAZOBACTAM SOD 3.375 GM in D5W MINI-BAG PLUS 50 ML IV SCH ×4 (03:29→21:25)
[2022-11-19] MEDS: ACETAMINOPHEN TAB 650MG DOSE (2X325MG) PO PRN ×2 (03:34→18:22)
[2022-11-19] MEDS: **hydrALAZINE** 10 MG TAB PO SCH ×3 (05:43→22:00)
[2022-11-19] MEDS: ISOSORBIDE DIN (ISORDIL) 10MG TAB PO SCH ×3 (05:44→22:00)
[2022-11-19] MEDS ORDERED: METOPROLOL TART 25 MG TABLET PO SCH (09:00)
[2022-11-19] MEDS ORDERED: VANCOMYCIN HCL 1,000 MG, VIAL MATE ADAPTER 1 EACH in D5W 250 ML IV SCH (10:00)
[2022-11-19] MEDS: FOLIC ACID 1MG TAB PO SCH (11:15)
[2022-11-19] MEDS: APIXABAN 5 MG TAB (ELIQUIS) PO SCH (11:16)
[2022-11-19] MEDS: GABAPENTIN 100 MG CAP PO SCH ×2 (11:16→21:25)
[2022-11-19] MEDS: DAPAGLIFLOZIN PROPANEDIOL 10MG TABLET (FARXIGA) PO SCH (11:16)
[2022-11-19] MEDS: FUROSEMIDE 40 MG TAB PO SCH (11:17)
[2022-11-19] MEDS: MULTIVITAMINS/MINERALS THERAP 1 TAB PO SCH (11:17)
[2022-11-19] MEDS: DIMETHICONE 2% OINTMENT(VANICREAM) 70GM TUBE TOP SCH ×2 (11:19→21:25)
[2022-11-19] MEDS: PERCOCET 5MG/325MG TAB PO PRN ×2 (11:23→18:49)
[2022-11-19] MEDS: lisinopriL 5 MG TAB PO SCH (12:29)
[2022-11-19] MEDS: POTASSIUM CHLORIDE 10MEQ SR TABLET PO SCH (16:53)
[2022-11-20] VITALS (9 sets, daily range): BP systolic 72–138; BP diastolic 48–100
[2022-11-20] MEDS: PIPERACILLIN/TAZOBACTAM SOD 3.375 GM in D5W MINI-BAG PLUS 50 ML IV SCH ×4 (04:05→20:52)
[2022-11-20] MEDS: **hydrALAZINE** 10 MG TAB PO SCH ×3 (05:46→20:23)
[2022-11-20] MEDS: ISOSORBIDE DIN (ISORDIL) 10MG TAB PO SCH ×3 (05:46→20:23)
[2022-11-20 08:23] LABS: BASO # 0.1 10^3/uL (0.0-0.2); EOS # 0.5 10^3/uL (0.0-0.5); EOS % 9.3 % (0.0-3.0); HEMOGLOBIN 8.1 g/dl (13.5-17.5); LYMPH # 0.6 10^3/uL (1.5-5.0); LYMPH % 11.3 % (24.0-44.0); MEAN CORPUSCULAR HEMOGLOBIN 28.1 pg (27.0-33.0); MEAN CORPUSCULAR VOLUME 93.8 fl (80.0-96.0); MONO # 0.4 10^3/uL (0.0-0.8); MONO % 8.3 % (2.0-8.0); NEUTROPHILS # 3.5 10^3/uL (1.5-8.5); NEUTROPHILS % 69.7 % (36.0-66.0); PLATELET COUNT, AUTOMATED 354 10^3/uL (150-450); RED BLOOD COUNT 2.88 10^6/uL (4.30-6.10)
[2022-11-20] MEDS: GABAPENTIN 100 MG CAP PO SCH (08:25)
[2022-11-20] MEDS: POTASSIUM CHLORIDE 10MEQ SR TABLET PO SCH (08:26)
[2022-11-20] MEDS: METOPROLOL TART 12.5 MG PER 1/2 TAB PO SCH (08:27)
[2022-11-20] MEDS: FOLIC ACID 1MG TAB PO SCH (08:27)
[2022-11-20] MEDS: FUROSEMIDE 40 MG TAB PO SCH (08:27)
[2022-11-20] MEDS: MULTIVITAMINS/MINERALS THERAP 1 TAB PO SCH (08:27)
[2022-11-20] MEDS: lisinopriL 5 MG TAB PO SCH (08:27)
[2022-11-20] MEDS: ACETAMINOPHEN TAB 650MG DOSE (2X325MG) PO PRN ×2 (08:33→15:03)
[2022-11-20] MEDS: DAPAGLIFLOZIN PROPANEDIOL 10MG TABLET (FARXIGA) PO SCH (08:33)
[2022-11-20] MEDS: DIMETHICONE 2% OINTMENT(VANICREAM) 70GM TUBE TOP SCH ×2 (08:34→20:53)
[2022-11-20 08:46] LABS: ALBUMIN 2.3 G/DL (3.2-5.2); BILIRUBIN,DIRECT 0.3 MG/DL (<0.4); BILIRUBIN,TOTAL 0.4 MG/DL (0.3-1.2); CALCIUM LEVEL 8.4 MG/DL (8.3-10.6); CREATININE FOR GFR 1.45 MG/DL (0.70-1.30); GLOMERULAR FILTRATION RATE 52.8 (>49); TOTAL PROTEIN 6.5 G/DL (5.7-8.2)
[2022-11-20 08:48] LABS: PERCENT SATURATION 6.9 % (19.7-50.0)
[2022-11-20 08:50] LABS: FERRITIN 201.5 NG/ML (10.5-307.3); FOLATE 7.67 NG/ML (>5.4)
[2022-11-20] MEDS: FERROUS SULFATE 325MG TAB PO SCH (11:08)
[2022-11-20] MEDS ORDERED: LR 500 ML IV ONE (11:15)
[2022-11-20] MEDS: GABAPENTIN 300 MG CAP PO SCH (20:52)
[2022-11-21 02:00] VITALS: BP 116/64
[2022-11-21] MEDS: PIPERACILLIN/TAZOBACTAM SOD 3.375 GM in D5W MINI-BAG PLUS 50 ML IV SCH ×3 (04:21→18:54)
[2022-11-21 05:54] LABS: BASO % 0.6 % (0.0-1.0); EOS # 0.5 10^3/uL (0.0-0.5); EOS % 10.3 % (0.0-3.0); HEMOGLOBIN 7.6 g/dl (13.5-17.5); LYMPH # 0.8 10^3/uL (1.5-5.0); LYMPH % 15.3 % (24.0-44.0); MEAN CORPUSCULAR HEMOGLOBIN 27.3 pg (27.0-33.0); MEAN CORPUSCULAR HGB CONC 29.2 g/dl (32.0-36.5); MEAN CORPUSCULAR VOLUME 93.5 fl (80.0-96.0); MONO # 0.5 10^3/uL (0.0-0.8); MONO % 9.7 % (2.0-8.0); NEUTROPHILS # 3.3 10^3/uL (1.5-8.5); NEUTROPHILS % 63.5 % (36.0-66.0); PLATELET COUNT, AUTOMATED 358 10^3/uL (150-450); RED BLOOD COUNT 2.78 10^6/uL (4.30-6.10); WHITE BLOOD COUNT 5.2 10^3/uL (4.0-10.0)
[2022-11-21 06:00] VITALS: BP 117/61
[2022-11-21] MEDS ORDERED: LevoFLOXacin 750 MG TABLET PO SCH (06:00)
[2022-11-21] MEDS: ISOSORBIDE DIN (ISORDIL) 10MG TAB PO SCH ×3 (06:00→22:00)
[2022-11-21] MEDS: **hydrALAZINE** 10 MG TAB PO SCH ×3 (06:00→22:00)
[2022-11-21 06:06] LABS: ERYTHROCYTE SEDIMENTATION RATE 58 mm/hr (0-20)
[2022-11-21 06:22] LABS: CALCIUM LEVEL 8.4 MG/DL (8.3-10.6); CREATININE FOR GFR 1.51 MG/DL (0.70-1.30); GLOMERULAR FILTRATION RATE 50.4 (>49)
[2022-11-21] MEDS ORDERED: LR 1,000 ML IV ONE (07:45)
[2022-11-21] MEDS: GABAPENTIN 300 MG CAP PO SCH ×2 (08:56→19:58)
[2022-11-21] MEDS: DAPAGLIFLOZIN PROPANEDIOL 10MG TABLET (FARXIGA) PO SCH (08:56)
[2022-11-21] MEDS: POTASSIUM CHLORIDE 10MEQ SR TABLET PO SCH (08:57)
[2022-11-21] MEDS: FUROSEMIDE 40 MG TAB PO SCH (08:57)
[2022-11-21] MEDS: FOLIC ACID 1MG TAB PO SCH (08:57)
[2022-11-21] MEDS: METOPROLOL TART 12.5 MG PER 1/2 TAB PO SCH (08:58)
[2022-11-21] MEDS: lisinopriL 5 MG TAB PO SCH (08:58)
[2022-11-21] MEDS: MULTIVITAMINS/MINERALS THERAP 1 TAB PO SCH (08:58)
[2022-11-21] MEDS: DIMETHICONE 2% OINTMENT(VANICREAM) 70GM TUBE TOP SCH ×2 (08:59→19:58)
[2022-11-21] MEDS ORDERED: DOXYCYCLINE HYCLATE 100MG TABLET PO SCH (09:00)
[2022-11-21 10:00] VITALS: BP 113/58
[2022-11-21 14:00] VITALS: BP 106/56
[2022-11-21] MEDS: PERCOCET 5MG/325MG TAB PO PRN (16:39)
[2022-11-21] MEDS ORDERED: diphenhydrAMINE 50MG/ML VIAL IV STA (17:09)
[2022-11-21] MEDS ORDERED: methylPREDNISolone 125MG 2ML VIAL IV ONE (17:30)
[2022-11-21 18:00] VITALS: BP 123/58
[2022-11-21 20:00] VITALS: BP 123/66
[2022-11-22] MEDS: PIPERACILLIN/TAZOBACTAM SOD 3.375 GM in D5W MINI-BAG PLUS 50 ML IV SCH ×5 (00:31→23:07)
[2022-11-22] MEDS: **hydrALAZINE** 10 MG TAB PO SCH ×3 (06:00→22:00)
[2022-11-22 06:19] LABS: BASO % 0.7 % (0.0-1.0); EOS % 0.3 % (0.0-3.0); HEMATOCRIT 27.1 % (42.0-52.0); LYMPH # 0.4 10^3/uL (1.5-5.0); LYMPH % 12.1 % (24.0-44.0); MEAN CORPUSCULAR HEMOGLOBIN 27.6 pg (27.0-33.0); MEAN CORPUSCULAR HGB CONC 29.5 g/dl (32.0-36.5); MEAN CORPUSCULAR VOLUME 93.4 fl (80.0-96.0); MONO # 0.1 10^3/uL (0.0-0.8); MONO % 2.9 % (2.0-8.0); NEUTROPHILS # 2.6 10^3/uL (1.5-8.5); NEUTROPHILS % 83.3 % (36.0-66.0); PLATELET COUNT, AUTOMATED 403 10^3/uL (150-450); WHITE BLOOD COUNT 3.1 10^3/uL (4.0-10.0)
[2022-11-22 06:29] VITALS: BP 136/78
[2022-11-22] MEDS: ISOSORBIDE DIN (ISORDIL) 10MG TAB PO SCH ×3 (06:38→22:00)
[2022-11-22 06:51] LABS: C REACTIVE PROTEIN QUANTITATIV 4.4 MG/DL (<1.0)
[2022-11-22 06:52] LABS: CREATININE FOR GFR 1.3 MG/DL (0.70-1.30); GLOMERULAR FILTRATION RATE 59.9 (>49); POTASSIUM SERUM 4.3 MMOL/L (3.5-5.1)
[2022-11-22 08:00] VITALS: BP 108/62
[2022-11-22] MEDS: METOPROLOL TART 12.5 MG PER 1/2 TAB PO SCH (08:09)
[2022-11-22] MEDS: lisinopriL 5 MG TAB PO SCH (08:09)
[2022-11-22] MEDS: GABAPENTIN 300 MG CAP PO SCH ×2 (09:42→20:23)
[2022-11-22] MEDS: FERROUS SULFATE 325MG TAB PO SCH (09:42)
[2022-11-22] MEDS: MULTIVITAMINS/MINERALS THERAP 1 TAB PO SCH (09:42)
[2022-11-22] MEDS: FOLIC ACID 1MG TAB PO SCH (09:42)
[2022-11-22] MEDS: POTASSIUM CHLORIDE 10MEQ SR TABLET PO SCH (09:43)
[2022-11-22] MEDS: FUROSEMIDE 40 MG TAB PO SCH (09:43)
[2022-11-22] MEDS: DIMETHICONE 2% OINTMENT(VANICREAM) 70GM TUBE TOP SCH ×2 (09:47→20:23)
[2022-11-22 10:00] VITALS: BP 111/63
[2022-11-22] MEDS: DAPAGLIFLOZIN PROPANEDIOL 10MG TABLET (FARXIGA) PO SCH (11:30)
[2022-11-22 14:00] VITALS: BP 112/63
[2022-11-22 18:00] VITALS: BP 149/88
[2022-11-22 21:00] VITALS: BP 113/62
[2022-11-22] MEDS: PERCOCET 5MG/325MG TAB PO PRN (23:06)
[2022-11-23 02:00] VITALS: BP 115/63
[2022-11-23] MEDS: PIPERACILLIN/TAZOBACTAM SOD 3.375 GM in D5W MINI-BAG PLUS 50 ML IV SCH (05:12)
[2022-11-23] MEDS: **hydrALAZINE** 10 MG TAB PO SCH ×3 (05:34→22:00)
[2022-11-23] MEDS: ISOSORBIDE DIN (ISORDIL) 10MG TAB PO SCH ×3 (05:35→23:01)
[2022-11-23 06:14] VITALS: BP 112/61
[2022-11-23 06:27] LABS: BASO # 0.1 10^3/uL (0.0-0.2); BASO % 1.3 % (0.0-1.0); EOS # 0.7 10^3/uL (0.0-0.5); EOS % 13.2 % (0.0-3.0); HEMATOCRIT 28.1 % (42.0-52.0); HEMOGLOBIN 8.3 g/dl (13.5-17.5); LYMPH # 0.6 10^3/uL (1.5-5.0); LYMPH % 11.8 % (24.0-44.0); MEAN CORPUSCULAR HEMOGLOBIN 27.9 pg (27.0-33.0); MEAN CORPUSCULAR HGB CONC 29.5 g/dl (32.0-36.5); MEAN CORPUSCULAR VOLUME 94.3 fl (80.0-96.0); MONO # 0.3 10^3/uL (0.0-0.8); MONO % 5.8 % (2.0-8.0); NEUTROPHILS # 3.6 10^3/uL (1.5-8.5); NEUTROPHILS % 67.2 % (36.0-66.0); PLATELET COUNT, AUTOMATED 416 10^3/uL (150-450); RED BLOOD COUNT 2.98 10^6/uL (4.30-6.10); WHITE BLOOD COUNT 5.4 10^3/uL (4.0-10.0)
[2022-11-23 06:50] LABS: BLOOD UREA NITROGEN 41 MG/DL (9-23); CALCIUM LEVEL 8.3 MG/DL (8.3-10.6); CARBON DIOXIDE LEVEL 28 MMOL/L (20-31); CHLORIDE LEVEL 102 MMOL/L (98-107); CREATININE FOR GFR 1.22 MG/DL (0.70-1.30); GLOMERULAR FILTRATION RATE > 60.0 (>49); GLUCOSE, FASTING 106 MG/DL (74-106); POTASSIUM SERUM 4.1 MMOL/L (3.5-5.1); SODIUM LEVEL 138 MMOL/L (136-145)
[2022-11-23 07:11] LABS: ERYTHROCYTE SEDIMENTATION RATE 40 mm/hr (0-20)
[2022-11-23] MEDS ORDERED: DEXTROSE 50% 50ML SYRINGE IV PRN (07:45)
[2022-11-23] MEDS ORDERED: GLUCOSE 4GM CHEW TABLET PO PRN (07:45)
[2022-11-23] MEDS ORDERED: GLUCAGON INJ 1MG VIAL SC PRN (07:45)
[2022-11-23] MEDS: lisinopriL 5 MG TAB PO SCH (09:00)
[2022-11-23] MEDS: METOPROLOL TART 12.5 MG PER 1/2 TAB PO SCH (09:00)
[2022-11-23] MEDS: GABAPENTIN 300 MG CAP PO SCH ×2 (09:08→22:55)
[2022-11-23] MEDS: DAPAGLIFLOZIN PROPANEDIOL 10MG TABLET (FARXIGA) PO SCH (09:08)
[2022-11-23] MEDS: FOLIC ACID 1MG TAB PO SCH (09:08)
[2022-11-23] MEDS: MULTIVITAMINS/MINERALS THERAP 1 TAB PO SCH (09:08)
[2022-11-23] MEDS: POTASSIUM CHLORIDE 10MEQ SR TABLET PO SCH (09:09)
[2022-11-23] MEDS: INSULIN LISPRO (NovoLOG) PER UNIT SC SCH ×4 (09:09→21:00)
[2022-11-23] MEDS: DIMETHICONE 2% OINTMENT(VANICREAM) 70GM TUBE TOP SCH ×2 (09:10→22:56)
[2022-11-23] MEDS: FUROSEMIDE 40 MG TAB PO SCH (09:10)
[2022-11-23] MEDS ORDERED: diphenhydrAMINE 50MG/ML VIAL IV ONE (10:00)
[2022-11-23] MEDS: AUGMENTIN 875 MG TAB PO SCH ×2 (10:43→22:55)
[2022-11-23] MEDS: CLOBETASOL PROPIONATE EMOLLIENT 0.05% CR 60 GM TOP SCH (10:44)
[2022-11-23] MEDS: PERCOCET 5MG/325MG TAB PO PRN (23:02)
[2022-11-24 06:00] VITALS: BP 124/73
[2022-11-24] MEDS: **hydrALAZINE** 10 MG TAB PO SCH ×3 (06:00→20:22)
[2022-11-24] MEDS: ISOSORBIDE DIN (ISORDIL) 10MG TAB PO SCH ×3 (06:27→20:23)
[2022-11-24 06:35] LABS: BASO % 0.6 % (0.0-1.0); EOS # 0.7 10^3/uL (0.0-0.5); EOS % 13.4 % (0.0-3.0); HEMATOCRIT 26.6 % (42.0-52.0); HEMOGLOBIN 7.8 g/dl (13.5-17.5); LYMPH % 20.2 % (24.0-44.0); MEAN CORPUSCULAR HEMOGLOBIN 27.7 pg (27.0-33.0); MEAN CORPUSCULAR HGB CONC 29.3 g/dl (32.0-36.5); MEAN CORPUSCULAR VOLUME 94.3 fl (80.0-96.0); MONO # 0.4 10^3/uL (0.0-0.8); MONO % 8.3 % (2.0-8.0); NEUTROPHILS # 2.8 10^3/uL (1.5-8.5); NEUTROPHILS % 56.9 % (36.0-66.0); PLATELET COUNT, AUTOMATED 418 10^3/uL (150-450); RED BLOOD COUNT 2.82 10^6/uL (4.30-6.10); WHITE BLOOD COUNT 4.9 10^3/uL (4.0-10.0)
[2022-11-24 06:57] LABS: BLOOD UREA NITROGEN 35 MG/DL (9-23); CALCIUM LEVEL 8.1 MG/DL (8.3-10.6); CARBON DIOXIDE LEVEL 28 MMOL/L (20-31); CHLORIDE LEVEL 104 MMOL/L (98-107); CREATININE FOR GFR 1.19 MG/DL (0.70-1.30); GLOMERULAR FILTRATION RATE > 60.0 (>49); GLUCOSE, FASTING 98 MG/DL (74-106); POTASSIUM SERUM 4.5 MMOL/L (3.5-5.1); SODIUM LEVEL 139 MMOL/L (136-145)
[2022-11-24] MEDS: INSULIN LISPRO (NovoLOG) PER UNIT SC SCH ×4 (07:30→20:22)
[2022-11-24] MEDS: DAPAGLIFLOZIN PROPANEDIOL 10MG TABLET (FARXIGA) PO SCH (08:21)
[2022-11-24] MEDS: PERCOCET 5MG/325MG TAB PO PRN (08:30)
[2022-11-24] MEDS: FERROUS SULFATE 325MG TAB PO SCH (08:31)
[2022-11-24] MEDS: GABAPENTIN 300 MG CAP PO SCH ×2 (08:31→20:22)
[2022-11-24] MEDS: METOPROLOL TART 12.5 MG PER 1/2 TAB PO SCH (08:31)
[2022-11-24] MEDS: AUGMENTIN 875 MG TAB PO SCH ×2 (08:31→20:22)
[2022-11-24] MEDS: lisinopriL 5 MG TAB PO SCH (08:32)
[2022-11-24] MEDS: FOLIC ACID 1MG TAB PO SCH (08:32)
[2022-11-24] MEDS: MULTIVITAMINS/MINERALS THERAP 1 TAB PO SCH (08:32)
[2022-11-24] MEDS: FUROSEMIDE 40 MG TAB PO SCH (08:33)
[2022-11-24] MEDS: POTASSIUM CHLORIDE 10MEQ SR TABLET PO SCH (08:34)
[2022-11-24] MEDS: DIMETHICONE 2% OINTMENT(VANICREAM) 70GM TUBE TOP SCH ×2 (11:00→20:23)
[2022-11-24] MEDS: CLOBETASOL PROPIONATE EMOLLIENT 0.05% CR 60 GM TOP SCH (11:00)
[2022-11-24 20:00] VITALS: BP 123/68
[2022-11-25 06:00] VITALS: BP 135/79
[2022-11-25] MEDS: **hydrALAZINE** 10 MG TAB PO SCH ×3 (06:00→21:02)
[2022-11-25] MEDS: ISOSORBIDE DIN (ISORDIL) 10MG TAB PO SCH ×3 (06:30→21:03)
[2022-11-25] MEDS: INSULIN LISPRO (NovoLOG) PER UNIT SC SCH ×4 (08:32→20:33)
[2022-11-25] MEDS: APIXABAN 5 MG TAB (ELIQUIS) PO SCH ×2 (08:34→21:01)
[2022-11-25] MEDS: DAPAGLIFLOZIN PROPANEDIOL 10MG TABLET (FARXIGA) PO SCH (08:34)
[2022-11-25] MEDS: DIMETHICONE 2% OINTMENT(VANICREAM) 70GM TUBE TOP SCH ×2 (08:34→21:00)
[2022-11-25] MEDS: PERCOCET 5MG/325MG TAB PO PRN ×2 (08:35→15:48)
[2022-11-25] MEDS: GABAPENTIN 300 MG CAP PO SCH ×2 (08:35→21:01)
[2022-11-25] MEDS: MULTIVITAMINS/MINERALS THERAP 1 TAB PO SCH (08:36)
[2022-11-25] MEDS: POTASSIUM CHLORIDE 10MEQ SR TABLET PO SCH (08:36)
[2022-11-25] MEDS: FOLIC ACID 1MG TAB PO SCH (08:36)
[2022-11-25] MEDS: FUROSEMIDE 40 MG TAB PO SCH (08:36)
[2022-11-25] MEDS: METOPROLOL TART 12.5 MG PER 1/2 TAB PO SCH (08:37)
[2022-11-25] MEDS: CLOBETASOL PROPIONATE EMOLLIENT 0.05% CR 60 GM TOP SCH (08:39)
[2022-11-25] MEDS: lisinopriL 5 MG TAB PO SCH (09:37)
[2022-11-25] MEDS: ACETAMINOPHEN TAB 650MG DOSE (2X325MG) PO PRN (21:01)
[2022-11-26 05:30] VITALS: BP 128/65
[2022-11-26] MEDS: **hydrALAZINE** 10 MG TAB PO SCH ×2 (05:31→13:26)
[2022-11-26 05:33] VITALS: BP 128/65
[2022-11-26] MEDS: ACETAMINOPHEN TAB 650MG DOSE (2X325MG) PO PRN (05:33)
[2022-11-26] MEDS: ISOSORBIDE DIN (ISORDIL) 10MG TAB PO SCH ×2 (05:33→13:26)
[2022-11-26] MEDS: METOPROLOL TART 12.5 MG PER 1/2 TAB PO SCH (07:47)
[2022-11-26] MEDS: lisinopriL 5 MG TAB PO SCH (07:47)
[2022-11-26] MEDS: DIMETHICONE 2% OINTMENT(VANICREAM) 70GM TUBE TOP SCH (07:47)
[2022-11-26 08:00] VITALS: BP 118/57
[2022-11-26] MEDS: APIXABAN 5 MG TAB (ELIQUIS) PO SCH (08:15)
[2022-11-26] MEDS: DAPAGLIFLOZIN PROPANEDIOL 10MG TABLET (FARXIGA) PO SCH (08:15)
[2022-11-26] MEDS: FOLIC ACID 1MG TAB PO SCH (08:15)
[2022-11-26] MEDS: FUROSEMIDE 40 MG TAB PO SCH (08:16)
[2022-11-26] MEDS: FERROUS SULFATE 325MG TAB PO SCH (08:16)
[2022-11-26] MEDS: MULTIVITAMINS/MINERALS THERAP 1 TAB PO SCH (08:16)
[2022-11-26] MEDS: GABAPENTIN 300 MG CAP PO SCH (08:17)
[2022-11-26] MEDS: POTASSIUM CHLORIDE 10MEQ SR TABLET PO SCH (08:17)
[2022-11-26] MEDS: CLOBETASOL PROPIONATE EMOLLIENT 0.05% CR 60 GM TOP SCH (08:19)
[2022-11-26] MEDS: INSULIN LISPRO (NovoLOG) PER UNIT SC SCH ×2 (08:33→12:00)
[2022-11-26 09:52] LABS: BASO % 0.9 % (0.0-1.0); EOS # 0.5 10^3/uL (0.0-0.5); HEMATOCRIT 29.2 % (42.0-52.0); HEMOGLOBIN 8.6 g/dl (13.5-17.5); LYMPH # 0.9 10^3/uL (1.5-5.0); LYMPH % 20.1 % (24.0-44.0); MEAN CORPUSCULAR HEMOGLOBIN 27.7 pg (27.0-33.0); MEAN CORPUSCULAR HGB CONC 29.5 g/dl (32.0-36.5); MEAN CORPUSCULAR VOLUME 93.9 fl (80.0-96.0); MONO # 0.3 10^3/uL (0.0-0.8); MONO % 5.9 % (2.0-8.0); NEUTROPHILS # 2.6 10^3/uL (1.5-8.5); NEUTROPHILS % 61.4 % (36.0-66.0); PLATELET COUNT, AUTOMATED 428 10^3/uL (150-450); RED BLOOD COUNT 3.11 10^6/uL (4.30-6.10); WHITE BLOOD COUNT 4.3 10^3/uL (4.0-10.0)
[2022-11-26 10:30] LABS: BLOOD UREA NITROGEN 28 MG/DL (9-23); CARBON DIOXIDE LEVEL 28 MMOL/L (20-31); CHLORIDE LEVEL 103 MMOL/L (98-107); CREATININE FOR GFR 0.98 MG/DL (0.70-1.30); GLOMERULAR FILTRATION RATE > 60.0 (>49); GLUCOSE, FASTING 133 MG/DL (74-106); MAGNESIUM LEVEL 1.9 MG/DL (1.8-2.4); POTASSIUM SERUM 4.4 MMOL/L (3.5-5.1); SODIUM LEVEL 138 MMOL/L (136-145)
[2022-11-26] MEDS ORDERED: FURO40TA2 PO (11:36)
[2022-11-26] MEDS ORDERED: FOLI1TAB11 PO (11:36)
[2022-11-26] MEDS ORDERED: SENN-52 PO (11:36)
[2022-11-26] MEDS ORDERED: PERCOCET PO (11:36)
== END 2022-11-26 14:11 | DRG 603 ==
LOC: EDBD 10:44 → M ED 10:44 → M ED INP 14:47 → ENRESERV 15:19 → M MSPAV 16:22
PROVIDERS: ADMIT General Practice; ATTEND Internal Medicine
PROC: 0S9D3ZX Drainage of Left Knee Joint, Percutaneous Approach, Diagnostic (ICD-10-PCS; principal; 2022-11-18 15:00)
PROC: B246ZZZ Ultrasonography of Right and Left Heart (ICD-10-PCS; 2022-11-21)
DX: L03.116 Cellulitis of left lower limb (principal); I50.42 Chronic combined systolic (congestive) and diastolic (congestive) heart failure; I13.0 Hypertensive heart and chronic kidney disease with heart failure and stage 1 through stage 4 chronic kidney disease, or unspecified chronic kidney disease; N17.9 Acute kidney failure, unspecified; M25.062 Hemarthrosis, left knee; N18.30 Chronic kidney disease, stage 3 unspecified; F10.10 Alcohol abuse, uncomplicated; K76.0 Fatty (change of) liver, not elsewhere classified; E78.5 Hyperlipidemia, unspecified; E66.9 Obesity, unspecified; D63.1 Anemia in chronic kidney disease; M25.462 Effusion, left knee; Z86.718 Personal history of other venous thrombosis and embolism; Z98.41 Cataract extraction status, right eye; Z98.42 Cataract extraction status, left eye; Z87.891 Personal history of nicotine dependence; Z79.01 Long term (current) use of anticoagulants; Z79.899 Other long term (current) drug therapy; I95.9 Hypotension, unspecified; D50.9 Iron deficiency anemia, unspecified; M17.12 Unilateral primary osteoarthritis, left knee; S83.512A Sprain of anterior cruciate ligament of left knee, initial encounter; X58.XXXA Exposure to other specified factors, initial encounter; Y92.9 Unspecified place or not applicable; Z68.38 Body mass index [BMI] 38.0-38.9, adult; Y93.9 Activity, unspecified; Y99.9 Unspecified external cause status; G62.9 Polyneuropathy, unspecified; L27.0 Generalized skin eruption due to drugs and medicaments taken internally; T36.4X5A Adverse effect of tetracyclines, initial encounter

== ENCOUNTER → 2023-03-04 | Outpatient (CLI) | payer OTHER ==
[~2023-03-04] MED LIST changes: +ERGO500029 PO; +FERR325T3 PO; +FOLI1TAB11 PO; +LISI5TAB11 PO; +METO25TA4 PO; +PERCOCET PO; +POTA-298 PO; +SENN-52 PO
[2023-03-04 17:12] LABS: ALBUMIN 3.6 G/DL (3.2-5.2); ALKALINE PHOSPHATASE 135 U/L (46-116); ALT/SGPT 23 U/L (7.0-40); AST/SGOT 17 U/L (<34); BILIRUBIN,TOTAL 0.3 MG/DL (0.3-1.2); BLOOD UREA NITROGEN 18 MG/DL (9-23); CALCIUM LEVEL 8.7 MG/DL (8.3-10.6); CARBON DIOXIDE LEVEL 31 MMOL/L (20-31); CHLORIDE LEVEL 103 MMOL/L (98-107); CREATININE FOR GFR 1.29 MG/DL (0.70-1.30); GLOMERULAR FILTRATION RATE > 60.0 (>49); GLUCOSE, FASTING 137 MG/DL (74-106); POTASSIUM SERUM 3.4 MMOL/L (3.5-5.1); SODIUM LEVEL 141 MMOL/L (136-145); TOTAL PROTEIN 7.1 G/DL (5.7-8.2)
[2023-03-04 17:14] LABS: TOTAL 25(OH) VITAMIN D 38.6 NG/ML (20.0-100.0)
[2023-03-04 17:15] LABS: BASO # 0.1 10^3/uL (0.0-0.2); BASO % 1.4 % (0.0-1.0); EOS # 0.3 10^3/uL (0.0-0.5); EOS % 8.6 % (0.0-3.0); HEMATOCRIT 33.8 % (42.0-52.0); HEMOGLOBIN 10.3 g/dl (13.5-17.5); LYMPH # 1.4 10^3/uL (1.5-5.0); LYMPH % 39.4 % (24.0-44.0); MEAN CORPUSCULAR HEMOGLOBIN 28.3 pg (27.0-33.0); MEAN CORPUSCULAR HGB CONC 30.5 g/dl (32.0-36.5); MEAN CORPUSCULAR VOLUME 92.9 fl (80.0-96.0); MONO # 0.5 10^3/uL (0.0-0.8); MONO % 14.1 % (2.0-8.0); NEUTROPHILS # 1.3 10^3/uL (1.5-8.5); NEUTROPHILS % 36.2 % (36.0-66.0); PLATELET COUNT, AUTOMATED 272 10^3/uL (150-450); RED BLOOD COUNT 3.64 10^6/uL (4.30-6.10); WHITE BLOOD COUNT 3.5 10^3/uL (4.0-10.0)
[2023-03-04 17:50] LABS: CREATININE, URINE 27.2 MG/DL; MALB URINE SIEMENS < 3.0 MG/L
[2023-03-04 17:52] LABS: HEMOGLOBIN A1c 5.3 % (4.0-6.0)
== END ==
LOC: M WUC 13:42
PROVIDERS: ATTEND Family Medicine
DX: D50.9 Iron deficiency anemia, unspecified (principal); E11.69 Type 2 diabetes mellitus with other specified complication